=== PATIENT | female | born 1995 | race Caucasian/White ===

== ENCOUNTER 2016-07-09 16:59 | Emergency (ER) ==
[2016-07-09 17:08] VITALS: BMI 65.7
--- NOTE | 2016-07-09 17:52 | ED.PDOC ---
General <RYAN ENCISO - Last Filed: 07/09/16 22:36> Stated Complaint: has seen md at office due to cough/low grade fever with dx of bronchitis--on round of antibiotics-but cont to have bilat ribcage pain with coughing and some upper chest pain at times--no relief with inhaler[nd] Time Seen by Physician: 17:51 Mode of Arrival: Walk-In Information Source: Patient, Family Exam Limitations: No limitations Nursing and Triage Documentation Reviewed and Agree: No <ALVA ALVARADO JR - Last Filed: 07/10/16 09:43> ED Provider: Dr. ALVA ALVARADO JR ([facility]) (ALVA ALVARADO JR) Chief Complaint: Chest Wall Injury/Pain Primary Care Provider: [facility] ROBLES [facility] (ALVA ALVARADO JR) Review of Systems - Review Of Systems Constitutional: Reports: Malaise Respiratory: Reports: Cough Cardiac: Reports: Chest pain GI: Reports: No symptoms : Reports: No symptoms Musculoskeletal: Reports: No symptoms Skin: Reports: No symptoms Neurological: Reports: No symptoms Endocrine: Reports: No symptoms Hematologic/Lymphatic: Reports: No symptoms All Other Systems: Other <ALVA ALVARADO JR - Last Filed: 07/10/16 09:43> Past Medical History - Past Medical History Previously Healthy: Yes Endocrine: Reports: None Cardiovascular: Reports: None Respiratory: Reports: Asthma Hematological: Reports: None Gastrointestinal: Reports: None Genitourinary: Reports: None Neuro/Psych: Reports: None Musculoskeletal: Reports: None Cancer: Reports: None Last Menstrual Period: irreg--unknown - Surgical History General Surgical History: Reports: None - Family History Family History: Reports: None - Social History Smoking Status: Current every day smoker, Heavy tobacco smoker Hx Substance Use: No Alcohol Screening: None <ALVA ALVARADO JR - Last Filed: 07/10/16 09:43> Physical Exam - Physical Exam Appearance: Well-appearing, Obese Pain Distress: Moderate Eyes: CHARLY, EOMI, Conjunctiva clear ENT: Ears normal, Nose normal, Oropharynx normal Neck: Supple Respiratory: Airway patent, Breath sounds clear, Breath sounds equal, Breath sounds diminished, Respirations nonlabored Cardiovascular: RRR, Pulses normal, No rub, No murmur GI/: Soft, Nontender, No masses, Bowel sounds normal, No Organomegaly Musculoskeletal: Normal strength, ROM intact, No edema, No calf tenderness ( tender left costal margin about 8th rib and right sternal border possibly costochondral tenderness) Skin: Warm, Dry, Normal color Neurological: Sensation intact, Motor intact, Reflexes intact, Cranial nerves intact, Alert, Oriented Psychiatric: Affect appropriate, Mood appropriate <ALVA ALVARADO JR - Last Filed: 07/10/16 09:43> Interpretation - Radiology Interpretation Radiology Results: Positive Exam Interpreted: CT Scan <RYAN ENCISO - Last Filed: 07/09/16 22:36> - Radiology Interpretation Radiology Interpretation By: Radiologist Radiology Results: Negative Exam Interpreted: CT Scan (CHEST -INCIDENTAL [id number] CYSTIC STRUCTURE-CT ABD AND PELVIS RECOMMENDED) <ALVA ALVARADO JR - Last Filed: 07/10/16 09:43> Physician Notification - Case Discussed Physician Notified: dr calvillo at 9pm--stated to send to [facility] Physician Notified: dr hernandez accepted for dr mike medina--[facility] Time of Notification: 21:44 <RYAN ENCISO - Last Filed: 07/09/16 22:36> - Case Discussed Endorsed To/Discussed With: DR BLAIR Time of Discussion: 19:00 <ALVA ALVARADO JR - Last Filed: 07/10/16 09:43> Critical Care Note - Critical Care Note Total Time (mins): 0 <ALVA ALVARADO JR - Last Filed: 07/10/16 09:43> Course - Course Hematology/Chemistry: 07/09/16 19:34 07/09/16 19:34 <RYAN ENCISO - Last Filed: 07/09/16 22:36> - Course Hematology/Chemistry: 07/09/16 19:34 07/09/16 19:34 <ALVA ALVARADO JR - Last Filed: 07/10/16 09:43> - Course Orders, Labs, Meds: Lab Review 07/09/16 07/09/16 17:15 19:34 WBC 14.19 H RBC 4.84 Hgb 13.0 Hct 40.1 MCV 82.9 MCH 26.9 L MCHC 32.4 RDW Coeff of Jennifer 14.3 Plt Count 353 Immature Gran % (Auto) 0.6 Neut % (Auto) 56.6 Lymph % (Auto) 30.8 [place] % (Auto) 7.0 Eos % (Auto) 4.4 Baso % (Auto) 0.6 Immature Gran # (Auto) 0.1 Neut # 8.0 H Lymph # 4.4 H [place] # 1.0 Eos # 0.6 Baso # 0.1 D-Dimer 0.61 Sodium 140 Potassium 3.7 Chloride 104 Carbon Dioxide 28 Anion Gap 11.7 BUN 11 Creatinine 0.74 Estimated GFR (MDRD) 98.00 BUN/Creatinine Ratio 14.86 Glucose 79 Calcium 9.2 Total Bilirubin 0.26 AST 19 ALT 18 Alkaline Phosphatase 83 Total Protein 7.7 Albumin 3.4 Globulin 4.3 Albumin/Globulin Ratio 0.79 Urine Test Negative Orders Category Date Time Status NPO REMINDER: IMAGING ONCE CARE 07/09/16 18:57 Completed TRANSFER TO OUTSIDE FACILITY .TO OTHER OUTSIDE FACILITY CARE 07/09/16 21:45 Active (SEE ORDER DETAILS) WRITE TRANSFER/SBAR NOTE ONCE CARE 07/09/16 21:45 Active DISCHARGE ASSESSMENT ONCE DISCHARGE 07/09/16 21:45 Active WRITE DISCHARGE NOTE ONCE DISCHARGE 07/09/16 21:45 Active CBC W/ AUTO DIFF Stat LAB 07/09/16 19:34 Completed CMP [COMPREHENSIVE METABOLIC PANEL] Stat LAB 07/09/16 19:34 Completed D-DIMER Stat LAB 07/09/16 19:34 Completed TEST URINE [URINE ] Stat LAB 07/09/16 17:[address] ABDOMEN/PELVIS W CONTRAST Stat RADS 07/09/16 18:[address] CHEST W/O CONTRAST Stat RADS 07/09/16 18:02 Completed (RYAN ENCISO) Vital Signs: Temp Pulse Resp BP Pulse Ox 07/10/16 00:30 98.5 F 96 H 20 153/79 H 97 07/09/16 21:45 98.8 F 88 20 161/85 H 96 07/09/16 16:59 99.2 F 100 H 20 157/95 H 95 (RYAN ENCISO) (ALVA ALVARADO JR) Departure - Departure Time of Disposition: 21:44 Pt referred to PMD for follow-up: No Transfer Form Completed: Yes Disposition Discussed With: Patient, Family <RYAN ENCISO - Last Filed: 07/09/16 22:36> - Departure Pt referred to PMD for follow-up: Yes <ALVA ALVARADO SOFIYA JR - Last Filed: 07/10/16 09:43> - Departure Disposition: TSF SHORT-TRM HOSP Discharge Problem: Chest wall pain, Bronchitis 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 Instructions: Acute Bronchitis (ED), Ovarian Cyst (ED) Condition: Good Additional Instructions: cough medication for two to four weeks recheck if fever over 101.0 of if breathing is worse TRANFERRED TO [facility]) FOR OVARIAN CYST(MASSIVE ) Prescriptions: Benzonatate [Tessalon Perles] 200 mg PO TID PRN #20 capsule PRN Reason: Cough Guaifenesin/Codeine Phosphate [Robitussin AC Syrup] 10 ml PO Q6H PRN #240 ml PRN Reason: Cough Allergies/Adverse Reactions: Allergies Sulfa (Sulfonamide Antibiotics) Allergy (Mild, Verified 07/09/16 17:08) Itching methylphenidate [From Ritalin] Adverse Reaction (Verified 07/09/16 17:08) perphenazine [From Trilafon] Adverse Reaction (Verified 07/09/16 17:08) quetiapine [From Seroquel] Adverse Reaction (Verified 07/09/16 17:08) Home Medications: Ambulatory Orders Bupropion HCl [Wellbutrin Sr] 150 mg PO DAILY 12/06/15 [place] Carbonate 300 mg PO QID 12/06/15 Diphenhydramine HCl [Benadryl Allergy] 25 mg PO BEDTIME PRN 12/23/15 Terazosin HCl 10 mg PO DAILY 12/27/15 Albuterol Sulfate [Proair Hfa] 2 puff IH Q6H 07/09/16 Benzonatate [Tessalon Perles] 200 mg PO TID PRN #20 capsule 07/09/16 Guaifenesin/Codeine Phosphate [Robitussin AC Syrup] 10 ml PO Q6H PRN #240 ml Montelukast Sodium [Singulair] 10 mg PO BEDTIME 07/09/16
--- NOTE | 2016-07-09 18:48 | CT ---
Exam: There is a CT scan of the thorax without contrast. Date: 07/09/2016. Comparison: None. HISTORY: Cough with poor breath sounds. TECHNIQUE: Helical scan of the thorax was performed without contrast. FINDINGS: The thoracic inlet and axillary regions are normal. No suspicious mediastinal adenopathy is seen. The caliber of the thoracic aorta cardiac chambers are normal. The spleen and liver have a uniform attenuation. There is a cystic structure that is seen on the last few images that likely arises of the lower abdomen or pelvis and measures at least 29.6 x 19.8 cm but is incompletely visu alized. The thoracic spine and ribs are within normal limits. Evaluation at lung window settings does not demonstrate any suspicious pulmonary nodules, pleural fl uid or consolidation. Tracheobronchial tree is patent. Impression: No acute intrathoracic findings. However there is a cystic structure that arises out o f the lower abdomen or pelvis that is incompletely characterized. It measures at least 29.6 x 19.[address] scan of the abdomen pelvis with contrast would be recommended.
[2016-07-09 19:16] LABS: URINE PREGNANCY INTERNAL QC INTERNAL QC VALID
[2016-07-09 19:56] LABS: ALBUMIN 3.4 g/dL (3.4-5.0); ALBUMIN/GLOBULIN RATIO 0.79; ANION GAP 11.7; BILIRUBIN,TOTAL 0.26 mg/dL (0.00-1.20); BUN/CREATININE RATIO 14.86; CALCIUM 9.2 mg/dL (8.2-10.2); CREATININE 0.74 mg/dL (0.60-1.30); POTASSIUM 3.7 mmol/L (3.5-5.10); TOTAL PROTEIN 7.7 g/dL (6.4-8.2)
[2016-07-09 20:40] LABS: BASOPHILS # (AUTO) 0.1 K/uL (0-0.2); BASOPHILS % (AUTO) 0.6 % (0.0-3.0); EOSINOPHILS # (AUTO) 0.6 K/ul (0.0-0.7); EOSINOPHILS % (AUTO) 4.4 % (0.0-7.0); HEMATOCRIT 40.1 % (37.0-47.0); IMMATURE GRANULOCYTE % (AUTO) 0.6 % (0.0-5.0); LYMPHOCYTES # (AUTO) 4.4 K/uL (0.60-3.4); LYMPHOCYTES % (AUTO) 30.8 (10.0-50.0); MEAN CORPUSCULAR HEMOGLOBIN 26.9 pg (27.0-31.0); MEAN CORPUSCULAR HGB CONC 32.4 (31.8-35.4); MEAN CORPUSCULAR VOLUME 82.9 fl (81.0-99.0); NEUTROPHILS % (AUTO) 56.6; PLATELET COUNT 353 10^3/uL (140-440); RED BLOOD COUNT 4.84 10^6/ul (4.20-5.40); WHITE BLOOD COUNT 14.19 K/ul (4.6-10.2)
--- NOTE | 2016-07-09 20:42 | CT ---
Exam: CT of the abdomen and pelvis with contrast History: Abdominal abnormality seen on chest CT Technique: [address] of the abdomen pelvis following intravenous contrast FINDINGS: The lung bases are clear. No significant liver abnormality. The adrenals, pancreas and sp anjum are unremarkable. The stomach and hiatus are unremarkable. The gallbladder appears normal. Kidneys and proximal collecting system are unremarkable. Massive cyst of the abdominal midline measures 30 x 33 x 20 cm. The site of origin favored the left adnexa. The appendix is normal. Bowel loops demonstrate normal caliber. No inflamatory change seen in the mesentery or retroperitoneum. Vascular structures appear normal. No pathologic lymph node enlargement or abundance. Massive cyst likely emanating from the left adnexa. The cyst is entirely featureless. Remainder of the pelvic genitourinary structures appear normal. Pelvic bowel loops are unremarkable. No inflamm atory change in the pelvic fat. No acute abnormality of the abdominal or pelvic skeleton. Impression: 1. Massive abdominal cyst (30 x 33 x 20 cm). The cyst is entirely featureless. Surgical referral r ecommended. 2. No abnormalities of the abdomen or pelvis otherwise.
[2016-07-10 00:31] VITALS: BP 153/79; TEMP 98.5
== END 2016-07-10 01:10 | disposition short-term general hospital (02) ==
LOC: ED 16:59
DX: R07.89 Other chest pain (principal); J20.9 Acute bronchitis, unspecified; D27.1 Benign neoplasm of left ovary; Z79.899 Other long term (current) drug therapy; F17.210 Nicotine dependence, cigarettes, uncomplicated
CPT/HCPCS: 36415; 80053; 81025; 85025; 85379; 99285

== ENCOUNTER 2016-07-10 01:12 | Outpatient (CLI) | END 2016-07-10 01:13 | disposition home or self-care (01) | LOC: AMBL 01:12 | PROVIDERS: ATTEND Family Medicine | DX: R19.00 Intra-abdominal and pelvic swelling, mass and lump, unspecified site (principal) ==

== ENCOUNTER 2016-07-12 19:21 | Emergency (ER) ==
[2016-07-12 19:36] VITALS: BP 143/92; TEMP 99.5; BMI 65.2
[2016-07-12] MEDS ORDERED: ZOFRAN 4 MG/2 ML IM STA (19:50)
[2016-07-12] MEDS ORDERED: MORPHINE 4 MG/ML SYRINGE IM STA (19:50)
[2016-07-12 19:53] LABS: URINE PREGNANCY INTERNAL QC INTERNAL QC VALID
[2016-07-12 20:09] LABS: BASOPHILS # (AUTO) 0.1 K/uL (0-0.2); BASOPHILS % (AUTO) 0.8 % (0.0-3.0); EOSINOPHILS # (AUTO) 0.7 K/ul (0.0-0.7); EOSINOPHILS % (AUTO) 5.5 % (0.0-7.0); HEMATOCRIT 38.8 % (37.0-47.0); HEMOGLOBIN 12.7 g/dl (12.0-16.0); IMMATURE GRANULOCYTE % (AUTO) 0.2 % (0.0-5.0); LYMPHOCYTES # (AUTO) 3.6 K/uL (0.60-3.4); LYMPHOCYTES % (AUTO) 28.2 (10.0-50.0); MEAN CORPUSCULAR HEMOGLOBIN 26.8 pg (27.0-31.0); MEAN CORPUSCULAR HGB CONC 32.7 (31.8-35.4); MEAN CORPUSCULAR VOLUME 81.9 fl (81.0-99.0); MONOCYTES # (AUTO) 0.9 K/uL (0.4-2.0); MONOCYTES % (AUTO) 7.4 (0-10); NEUTROPHILS # (AUTO) 7.3 K/ul (2.0-6.9); NEUTROPHILS % (AUTO) 57.9; PLATELET COUNT 365 10^3/uL (140-440); RED BLOOD COUNT 4.74 10^6/ul (4.20-5.40); WHITE BLOOD COUNT 12.59 K/ul (4.6-10.2)
[2016-07-12 20:16] LABS: BILIRUBIN,URINE Negative (NEGATIVE); KETONES,URINE Negative (NEGATIVE); LEUKOCYTE ESTERASE ,URINE Negative (NEGATIVE); NITRITE,URINE Negative (NEGATIVE); PH,URINE 5.5 (5-9); PROTEIN,URINE Negative (NEGATIVE); URINE, BLOOD 2+ (NEGATIVE)
[2016-07-12 20:17] LABS: ADD URINE MICROSCOPIC YES
[2016-07-12 20:25] LABS: BACTERIA,URINE TRACE (NOT PRESENT)
[2016-07-12 20:27] LABS: FLU INTERNAL QC INTERNAL QC VALID; RAPID FLU A NEGATIVE (NEGATIVE); RAPID FLU B NEGATIVE (NEGATIVE)
[2016-07-12 20:31] LABS: ALBUMIN 3.5 g/dL (3.4-5.0); ALBUMIN/GLOBULIN RATIO 0.9; ANION GAP 13.8; BILIRUBIN,TOTAL 0.2 mg/dL (0.00-1.20); BUN/CREATININE RATIO 13.15; CALCIUM 9.1 mg/dL (8.2-10.2); CREATININE 0.76 mg/dL (0.60-1.30); POTASSIUM 3.8 mmol/L (3.5-5.10); TOTAL PROTEIN 7.4 g/dL (6.4-8.2)
--- NOTE | 2016-07-12 20:42 | CT ---
EXAM: CT chest without intravenous contrast 07/12/2016. Sagittal and coronal reformatted images ob tained HISTORY: Fever COMPARISON: 07/09/2016 FINDINGS: The heart size appears within normal limits. There is no pericardial effusion. There is no pulmonary consolidation, effusion or pneumothorax. The lungs appear normally aerated. No acute osseous abnormality. IMPRESSION: No acute cardiopulmonary process.
[2016-07-12 20:48] LABS: ERYTHROCYTE SEDIMENTATION RATE 46 mm/hr (0-20); ESR INTERNAL QC INTERNAL QC VALID
--- NOTE | 2016-07-12 20:48 | CT ---
EXAM: CT scan abdomen pelvis without contrast HISTORY: Pelvic mass or pain COMPARISON: CT scan abdomen pelvis 07/09/2016 FINDINGS: Contiguous axial images obtained through the abdomen pelvis without contrast utilizing 3- mm collimation. Sagittal and coronal reconstructions were imaged and reviewed.. The visualized roxane g bases are clear. Gallbladder is fluid filled without cholelithiasis. The liver pancreas spleen a nd adrenal glands have normal unenhanced CT appearance. The kidneys are morphologically normal. Th e abdominal aorta is normal in course and caliber. There is a normal appendix.. There is no eviden ce of free fluid.. Redemonstrated is a large cystic pelvic mass measuring 30 x 20 x 28 cm.. Bone w indows are unremarkable. IMPRESSION: Stable large cystic pelvic mass as described. No acute findings.
--- NOTE | 2016-07-12 21:01 | ED.PDOC ---
General ED Provider: Dr. RYAN BLAIR-ER Chief Complaint: Abdominal Pain Stated Complaint: kay have a cyst in my belly--im supposed to have surgery next week in [facility]--i dont have any pain meds Time Seen by Physician: 19:25 Mode of Arrival: Walk-In Information Source: Patient, Family Exam Limitations: No limitations Primary Care Provider: CAROLA ROBLES Nursing and Triage Documentation Reviewed and Agree: Yes GI Complaint Exam - Abdominal Pain Complaint/Exam Onset: Gradual Duration: several days Symptoms Are: Still present Timing: Intermittent Initial Severity: Mild Current Severity: Moderate Location of Pain: LUQ Radiates To: Reports: Back Character: Reports: Dull, Aching Aggravating: Reports: None Alleviating: Reports: Position, Spontaneous resolution Associated Signs and Symptoms: Denies: Diaphoresis, Fever, Cough, Chest pain, Dizziness, Back pain, Constipation, Blood in stool, Dysuria, Urinary frequency, Decreased urine output, Decreased appetite, Vaginal bleeding, Vaginal discharge , Nausea, Vomiting, Diarrhea, Sore throat, Decreased activity Related History: Reports: Similar episode (was here 3 days ago) 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 Surgical Obstruction Risk Factors: Reports: None Related Surgical History: Reports: None Patient Rh Status: Unknown Abdominal Findings: Present: None Differential Diagnoses: Ovarian Cyst Review of Systems - Review Of Systems Constitutional: Reports: No symptoms Eyes: Reports: No symptoms Ears, Nose, Mouth, Throat: Reports: No symptoms Respiratory: Reports: No symptoms Cardiac: Reports: No symptoms GI: Reports: Abdominal pain : Reports: No symptoms Musculoskeletal: Reports: No symptoms Skin: Reports: No symptoms Neurological: Reports: No symptoms Endocrine: Reports: No symptoms Hematologic/Lymphatic: Reports: No symptoms All Other Systems: Reviewed and Negative Past Medical History - Past Medical History Previously Healthy: Yes Endocrine: Reports: None Cardiovascular: Reports: None Respiratory: Reports: Asthma Hematological: Reports: None Gastrointestinal: Reports: None Genitourinary: Reports: None Neuro/Psych: Reports: None Musculoskeletal: Reports: None Cancer: Reports: None Last Menstrual Period: 3 months ago - Surgical History General Surgical History: Reports: None - Family History Family History: Reports: None - Social History Smoking Status: Former smoker Hx Substance Use: No Alcohol Screening: None Lives: With family - Immunizations Tetanus Shot up to Date: Yes Physical Exam - Physical Exam Appearance: Well-appearing Pain Distress: Mild Eyes: CHARLY, EOMI, Conjunctiva clear ENT: Ears normal, Nose normal, Oropharynx normal Neck: Supple Respiratory: Airway patent Cardiovascular: RRR GI/: Soft, Bowel sounds normal, Tender, Mass Musculoskeletal: Normal strength, ROM intact, No edema, No calf tenderness Skin: Warm, Dry, Normal color Neurological: Sensation intact, Motor intact, Reflexes intact, Cranial nerves intact, Alert, Oriented Psychiatric: Affect appropriate, Mood appropriate Interpretation - Radiology Interpretation Radiology Interpretation By: Radiologist Radiology Results: Positive Exam Interpreted: CT Scan ("adnexal cyst--no change in size") Re-Evaluation - Re-Evaluation Time of Re-Evaluation: 21:02 Status: Improved Vital Signs Stable: Yes Pain Level: 0 Appearance: NAD Lungs: Clear Skin: Warm and Dry Neuro: Alert and Oriented X3 CV: RRR Critical Care Note - Critical Care Note Total Time (mins): 0 Course - Course Hematology/Chemistry: 07/12/16 20:05 07/12/16 20:05 Orders, Labs, Meds: Lab Review 07/12/16 07/12/16 07/12/16 19:45 19:57 20:05 WBC 12.59 H RBC 4.74 Hgb 12.7 Hct 38.8 MCV 81.9 MCH 26.8 L MCHC 32.7 RDW Coeff of Jennifer 13.8 Plt Count 365 Immature Gran % (Auto) 0.2 Neut % (Auto) 57.9 Lymph % (Auto) 28.2 [place] % (Auto) 7.4 Eos % (Auto) 5.5 Baso % (Auto) 0.8 Immature Gran # (Auto) 0.0 Neut # 7.3 H Lymph # 3.6 H [place] # 0.9 Eos # 0.7 Baso # 0.1 ESR 46 H D-Dimer 0.59 Sodium 138 Potassium 3.8 Chloride 105 Carbon Dioxide 23 Anion Gap 13.8 BUN 10 Creatinine 0.76 Estimated GFR (MDRD) 95.00 BUN/Creatinine Ratio 13.15 Glucose 87 Calcium 9.1 Total Bilirubin 0.20 AST 19 ALT 16 Alkaline Phosphatase 88 Total Protein 7.4 Albumin 3.5 Globulin 3.9 Albumin/Globulin Ratio 0.90 Urine Color Dark Urine Clarity Cloudy Urine pH 5.5 Ur Specific Hodge 1.025 Urine Protein Negative Urine Glucose (UA) Negative Urine Ketones Negative Urine Blood 2+ Urine Nitrite Negative Urine Bilirubin Negative Urine Urobilinogen 0.2 Ur Leukocyte Esterase Negative Urine Microscopic RBC 5-10 Urine Microscopic WBC 2-5 Ur Squamous Epith Cells 20-30 Urine Bacteria Trace Urine Test Negative Influenza A (Rapid) Negative Influenza B (Rapid) Negative Orders Category Date Time Status BLOOD CULTURE Stat LAB 07/12/16 20:05 Received CBC W/ AUTO DIFF Stat LAB 07/12/16 20:05 Completed COMPREHENSIVE METABOLIC PANEL Stat LAB 07/12/16 20:05 Completed CRP [C-REACTIVE PROTEIN] Stat LAB 07/12/16 20:05 Received D-DIMER Stat LAB 07/12/16 20:05 Completed ESR Stat LAB 07/12/16 20:05 Completed MOLECULAR GROUP A STREP Stat LAB 07/12/16 19:57 Results RAPID FLU A/B Stat LAB 07/12/16 19:57 Completed STREP SCREEN Stat LAB 07/12/16 19:57 Results URINALYSIS C & S IF INDICATED Stat LAB 07/12/16 19:45 Completed URINE Stat LAB 07/12/16 19:45 Completed Morphine Sulfate [Morphine 4 mg/ml Syringe] MEDS 07/12/16 19:50 Discontinued 4 mg IM ONCE STA Ondansetron HCl/Pf [Zofran 4 mg/2 ml] MEDS 07/12/16 19:50 Discontinued 4 mg IM ONCE STA CT ABDOMEN/PELVIS WO CONTRAST Stat RADS 07/12/16 19:[address] CHEST W/O CONTRAST Stat RADS 07/12/16 19:50 Completed Medications Discontinued Medications Generic Name Dose Route Start Last Admin Trade Name Freq PRN Reason Stop Dose Admin Morphine Sulfate 4 mg 07/12/16 19:50 Morphine 4 Mg/Ml Syringe IM 07/12/16 19:51 ONCE STA Ondansetron HCl 4 mg 07/12/16 19:50 Zofran 4 Mg/2 Ml IM 07/12/16 19:51 ONCE STA Vital Signs: Temp Pulse Resp BP Pulse Ox 07/12/16 19:22 99.5 F 89 20 143/92 H 96 Departure - Departure Time of Disposition: 21:02 Disposition: HOME SELF-CARE Discharge Problem: Adnexal cyst Instructions: Ovarian Cyst (ED) Condition: Good Pt referred to PMD for follow-up: Yes Additional Instructions: norco 7.5mg q 4hrs prn pain #12---keep appt with [facility] surgeon Allergies/Adverse Reactions: Allergies Sulfa (Sulfonamide Antibiotics) Allergy (Mild, Verified 07/12/16 19:36) Itching methylphenidate [From Ritalin] Adverse Reaction (Verified 07/12/16 19:36) perphenazine [From Trilafon] Adverse Reaction (Verified 07/12/16 19:36) quetiapine [From Seroquel] Adverse Reaction (Verified 07/12/16 19:36) Home Medications: Ambulatory Orders Bupropion HCl [Wellbutrin Sr] 150 mg PO DAILY 12/06/15 [place] Carbonate 300 mg PO QID 12/06/15 Diphenhydramine HCl [Benadryl Allergy] 25 mg PO BEDTIME PRN 12/23/15 Terazosin HCl 10 mg PO DAILY 12/27/15 Albuterol Sulfate [Proair Hfa] 2 puff IH Q6H 07/09/16 Guaifenesin/Codeine Phosphate [Robitussin AC Syrup] 10 ml PO Q6H PRN #240 ml Montelukast Sodium [Singulair] 10 mg PO BEDTIME 07/09/16 Disposition Discussed With: Patient, Family
== END 2016-07-12 21:15 | disposition home or self-care (01) ==
LOC: ED 19:21
DX: N83.209 Unspecified ovarian cyst, unspecified side (principal); R10.12 Left upper quadrant pain; Z79.899 Other long term (current) drug therapy
CPT/HCPCS: 36415; 80053; 81001; 81025; 85025; 85379; 85651; 86140; 87040; 87651; 87804; 87880; 96372; 99283

== ENCOUNTER 2016-07-14 04:33 | Emergency (ER) ==
[2016-07-14 04:34] VITALS: BMI 65.2
[2016-07-14 04:48] VITALS: BP 148/92; TEMP 97.4
[2016-07-14] MEDS ORDERED: SODIUM CHLORIDE 1,000 ML IV STA (04:56)
[2016-07-14 05:10] LABS: BASOPHILS # (AUTO) 0.1 K/uL (0-0.2); BASOPHILS % (AUTO) 0.7 % (0.0-3.0); EOSINOPHILS # (AUTO) 0.6 K/ul (0.0-0.7); EOSINOPHILS % (AUTO) 5.3 % (0.0-7.0); HEMATOCRIT 38.9 % (37.0-47.0); HEMOGLOBIN 12.7 g/dl (12.0-16.0); IMMATURE GRANULOCYTE % (AUTO) 0.3 % (0.0-5.0); LYMPHOCYTES # (AUTO) 3.1 K/uL (0.60-3.4); LYMPHOCYTES % (AUTO) 27.4 (10.0-50.0); MEAN CORPUSCULAR HGB CONC 32.6 (31.8-35.4); MEAN CORPUSCULAR VOLUME 82.6 fl (81.0-99.0); MONOCYTES # (AUTO) 0.7 K/uL (0.4-2.0); MONOCYTES % (AUTO) 6.2 (0-10); NEUTROPHILS # (AUTO) 6.7 K/ul (2.0-6.9); NEUTROPHILS % (AUTO) 60.1; PLATELET COUNT 316 10^3/uL (140-440); RED BLOOD COUNT 4.71 10^6/ul (4.20-5.40); WHITE BLOOD COUNT 11.12 K/ul (4.6-10.2)
--- NOTE | 2016-07-14 05:15 | ED.PDOC ---
General ED Provider: Dr. RYAN BLAIR-ER Chief Complaint: Abdominal Pain Stated Complaint: this cyst is hurting now--i am having vaginal bleeding-the norco is not helping my pain-- i want help please Time Seen by Physician: 04:45 Mode of Arrival: Ambulance Information Source: Patient Exam Limitations: No limitations Primary Care Provider: CAROLA ROBLES Nursing and Triage Documentation Reviewed and Agree: Yes GI Complaint Exam - Abdominal Pain Complaint/Exam Onset: Gradual Duration: several days Symptoms Are: Still present Timing: Constant Initial Severity: Mild Current Severity: Moderate Location of Pain: LUQ Character: Reports: Dull, Aching Aggravating: Reports: None Alleviating: Reports: None Associated Signs and Symptoms: Reports: Vaginal bleeding. 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: Ovarian cyst AAA Risk Factors: Reports: None Cardiac Risk Factors: Reports: None Ovarian Torsion Risk Factors: Reports: Reproductive age Surgical Obstruction Risk Factors: Reports: Colicky abdominal pain Patient Rh Status: Unknown Abdominal Findings: Present: None Differential Diagnoses: Ovarian Cyst Review of Systems - Review Of Systems Constitutional: Reports: No symptoms Eyes: Reports: No symptoms Ears, Nose, Mouth, Throat: Reports: No symptoms Respiratory: Reports: No symptoms Cardiac: Reports: No symptoms GI: Reports: Abdominal pain : Reports: No symptoms Musculoskeletal: Reports: No symptoms Skin: Reports: No symptoms Neurological: Reports: No symptoms Endocrine: Reports: No symptoms Hematologic/Lymphatic: Reports: No symptoms All Other Systems: Reviewed and Negative Past Medical History - Past Medical History Previously Healthy: Yes Endocrine: Reports: None Cardiovascular: Reports: None Respiratory: Reports: Asthma Hematological: Reports: None Gastrointestinal: Reports: None Genitourinary: Reports: None Neuro/Psych: Reports: None Musculoskeletal: Reports: None Cancer: Reports: None Last Menstrual Period: now - Surgical History General Surgical History: Reports: None - Family History Family History: Reports: None - Social History Smoking Status: Former smoker Hx Substance Use: No Alcohol Screening: None Lives: With family - Immunizations Tetanus Shot up to Date: Yes Physical Exam - Physical Exam Appearance: Well-appearing, No pain distress, Well-nourished Pain Distress: Mild Eyes: CHARLY, EOMI, Conjunctiva clear ENT: Ears normal, Nose normal, Oropharynx normal Neck: Supple Respiratory: Airway patent, Breath sounds clear, Breath sounds equal, Respirations nonlabored Cardiovascular: RRR, Pulses normal, No rub, No murmur GI/: Soft, No masses, Bowel sounds normal, No Organomegaly, Tender Musculoskeletal: Normal strength, ROM intact, No edema, No calf tenderness Skin: Warm, Dry, Normal color Neurological: Sensation intact, Motor intact, Reflexes intact, Cranial nerves intact, Alert, Oriented Psychiatric: Affect appropriate, Mood appropriate Physician Notification - Case Discussed Physician Notified: dr hernandez--[facility]--agreed to accept the patient Time of Notification: 05:16 Critical Care Note - Critical Care Note Total Time (mins): 0 Course - Course Hematology/Chemistry: 07/14/16 05:08 07/14/16 05:08 Orders, Labs, Meds: Lab Review 07/14/16 05:08 WBC 11.12 H RBC 4.71 Hgb 12.7 Hct 38.9 MCV 82.6 MCH 27.0 MCHC 32.6 RDW Coeff of Jennifer 13.8 Plt Count 316 Immature Gran % (Auto) 0.3 Neut % (Auto) 60.1 Lymph % (Auto) 27.4 [place] % (Auto) 6.2 Eos % (Auto) 5.3 Baso % (Auto) 0.7 Immature Gran # (Auto) 0.0 Neut # 6.7 Lymph # 3.1 [place] # 0.7 Eos # 0.6 Baso # 0.1 Sodium 141 Potassium 3.8 Chloride 107 Carbon Dioxide 26 Anion Gap 11.8 BUN 13 Creatinine 0.84 Estimated GFR (MDRD) 85.00 BUN/Creatinine Ratio 15.47 Glucose 97 Calcium 9.2 Total Bilirubin 0.26 AST 18 ALT 17 Alkaline Phosphatase 83 Total Protein 7.2 Albumin 3.4 Globulin 3.8 Albumin/Globulin Ratio 0.89 Serum , Qual Negative Orders Category Date Time Status IV [ED IV/MEDIPORT/POWERPORT] .ONCE EMERGENCY 07/14/16 04:56 Active CBC W/ AUTO DIFF Stat LAB 07/14/16 05:08 Completed COMPREHENSIVE METABOLIC PANEL Stat LAB 07/14/16 05:08 Completed SERUM Stat LAB 07/14/16 05:08 Completed 0.9 % Sodium Chloride [Saline Flush] MEDS 07/14/16 04:56 Ordered 1 syr IVF PRN PRN Morphine Sulfate [Morphine 2 mg/ml Syringe] MEDS 07/14/16 05:27 Discontinued 2 mg IVP ONCE STA Ondansetron HCl/Pf [Zofran 4 mg/2 ml] MEDS 07/14/16 05:27 Discontinued 4 mg IVP ONCE STA Sodium Chloride 0.9% [Sodium Chloride] 1,000 ml MEDS 07/14/16 04:56 Active IV 100 mls/hr Medications Generic Name Dose Route Start Last Admin Trade Name Freq PRN Reason Stop Dose Admin Sodium Chloride 1,000 mls @ 100 mls/hr 07/14/16 04:56 07/14/16 05:34 Sodium Chloride IV 07/14/16 14:55 100 mls/hr .Q10H STA Administration Sodium Chloride 1 syr 07/14/16 04:56 Saline Flush IVF PRN PRN To flush IV Discontinued Medications Generic Name Dose Route Start Last Admin Trade Name Freq PRN Reason Stop Dose Admin Morphine Sulfate 2 mg 07/14/16 05:27 07/14/16 05:39 Morphine 2 Mg/Ml Syringe IVP 07/14/16 05:28 2 mg ONCE STA Administration Ondansetron HCl 4 mg 07/14/16 05:27 07/14/16 05:39 Zofran 4 Mg/2 Ml IVP 07/14/16 05:28 4 mg ONCE STA Administration i spoke to dr hernandez--she inquired about whether or not she had an acute abdomen- -on my exam she does not--no rebound--good bs--we did not repeat ct scan today-- we do not have u/s available--dr hernandez asked me to tell the patient she might not be having surgery today and to relate that to the patient in a way she would not misunderstand..the patient understands but in light of the fact she was having pain unrelieved with norco she was agreeable to transfer Vital Signs: Temp Pulse Resp BP Pulse Ox 07/14/16 04:35 97.4 F L 84 20 148/92 H 99 Departure - Departure Time of Disposition: 05:25 Disposition: TSF SHORT-TRM HOSP Discharge Problem: Abdominal pain Ovarian cyst Qualifiers: Laterality: left Qualifier Code: (N83.202) Unspecified ovarian cyst, left side Instructions: Ovarian Cyst (ED) Condition: Good Pt referred to PMD for follow-up: Yes Allergies/Adverse Reactions: Allergies Sulfa (Sulfonamide Antibiotics) Allergy (Mild, Verified 07/14/16 04:48) Itching methylphenidate [From Ritalin] Adverse Reaction (Verified 07/14/16 04:48) perphenazine [From Trilafon] Adverse Reaction (Verified 07/14/16 04:48) quetiapine [From Seroquel] Adverse Reaction (Verified 07/14/16 04:48) Home Medications: Ambulatory Orders Bupropion HCl [Wellbutrin Sr] 150 mg PO DAILY 12/06/15 [place] Carbonate 300 mg PO QID 12/06/15 Diphenhydramine HCl [Benadryl Allergy] 25 mg PO BEDTIME PRN 12/23/15 Terazosin HCl 10 mg PO DAILY 12/27/15 Albuterol Sulfate [Proair Hfa] 2 puff IH Q6H 07/09/16 Guaifenesin/Codeine Phosphate [Robitussin AC Syrup] 10 ml PO Q6H PRN #240 ml Montelukast Sodium [Singulair] 10 mg PO BEDTIME 07/09/16 Transfer Form Completed: Yes Disposition Discussed With: Patient, Family
[2016-07-14 05:20] LABS: SERUM PREGNANCY INTERNAL QC INTERNAL QC VALID
[2016-07-14 05:27] LABS: ALBUMIN 3.4 g/dL (3.4-5.0); ALBUMIN/GLOBULIN RATIO 0.89; ANION GAP 11.8; BILIRUBIN,TOTAL 0.26 mg/dL (0.00-1.20); BUN/CREATININE RATIO 15.47; CALCIUM 9.2 mg/dL (8.2-10.2); CREATININE 0.84 mg/dL (0.60-1.30); POTASSIUM 3.8 mmol/L (3.5-5.10); TOTAL PROTEIN 7.2 g/dL (6.4-8.2)
[2016-07-14] MEDS ORDERED: ZOFRAN 4 MG/2 ML IVP STA (05:27)
[2016-07-14] MEDS ORDERED: MORPHINE 2 MG/ML SYRINGE IVP STA (05:27)
[2016-07-14] MEDS ORDERED: BENADRYL IVP STA (06:28)
== END 2016-07-14 07:59 | disposition short-term general hospital (02) ==
LOC: ED 04:33
DX: N83.202 Unspecified ovarian cyst, left side (principal); Z79.899 Other long term (current) drug therapy
CPT/HCPCS: 36415; 80053; 84703; 85025; 96361; 96374; 96375; 99285

== ENCOUNTER 2016-07-14 07:57 | Outpatient (CLI) ==
[2016-07-14 04:34] VITALS: BMI 65.2
== END 2016-07-14 07:58 ==
LOC: AMBL 07:57
PROVIDERS: ATTEND Emergency Medicine
DX: K65.1 Peritoneal abscess (principal); E66.01 Morbid (severe) obesity due to excess calories

== ENCOUNTER 2016-09-28 15:05 | Emergency (ER) | payer OTHER ==
[2016-09-28 15:12] VITALS: BMI 61.2
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
[2016-09-28 16:00] LABS: BASOPHILS # (AUTO) 0.1 K/uL (0-0.2); BASOPHILS % (AUTO) 0.6 % (0.0-3.0); EOSINOPHILS # (AUTO) 0.4 K/ul (0.0-0.7); EOSINOPHILS % (AUTO) 3.3 % (0.0-7.0); HEMATOCRIT 36.6 % (37.0-47.0); HEMOGLOBIN 12.1 g/dl (12.0-16.0); IMMATURE GRANULOCYTE % (AUTO) 0.6 % (0.0-5.0); LYMPHOCYTES # (AUTO) 2.9 K/uL (0.60-3.4); LYMPHOCYTES % (AUTO) 26.5 (10.0-50.0); MEAN CORPUSCULAR HGB CONC 33.1 (31.8-35.4); MEAN CORPUSCULAR VOLUME 81.7 fl (81.0-99.0); MONOCYTES # (AUTO) 0.6 K/uL (0.4-2.0); MONOCYTES % (AUTO) 5.6 (0-10); NEUTROPHILS # (AUTO) 6.8 K/ul (2.0-6.9); NEUTROPHILS % (AUTO) 63.4; PLATELET COUNT 348 10^3/uL (140-440); RED BLOOD COUNT 4.48 10^6/ul (4.20-5.40); WHITE BLOOD COUNT 10.75 K/ul (4.6-10.2)
[2016-09-28 16:38] LABS: ACETAMINOPHEN 11 ug/ml (10-30); ALANINE AMINOTRANSFERASE 19 U/L (12-78); ALBUMIN 3.2 g/dL (3.4-5.0); ALBUMIN/GLOBULIN RATIO 0.89; ALKALINE PHOSPHATASE 70 U/L (42-98); AMYLASE 50 U/L (25-115); ANION GAP 12.5; ASPARTATE AMINO TRANSFERASE 19 U/L (15-37); BILIRUBIN,TOTAL 0.21 mg/dL (0.00-1.20); BLOOD UREA NITROGEN 9 mg/dL (7-18); BUN/CREATININE RATIO 11.39; CALCIUM 8.9 mg/dL (8.2-10.2); CARBON DIOXIDE 25 mmol/L (21-32); CHLORIDE 107 mmol/L (98-107); CREATININE 0.79 mg/dL (0.60-1.30); GLUCOSE 113 mg/dL (70-110); LIPASE 23 U/L (8-78); POTASSIUM 3.5 mmol/L (3.5-5.10); SALICYLATE < 5.0 mg/dL (2.8-20.0); SODIUM 141 mmol/L (136-145); TOTAL PROTEIN 6.8 g/dL (6.4-8.2)
[2016-09-28 17:08] LABS: BILIRUBIN,URINE 1+ (NEGATIVE); KETONES,URINE Trace (NEGATIVE); LEUKOCYTE ESTERASE ,URINE Negative (NEGATIVE); NITRITE,URINE Negative (NEGATIVE); PH,URINE 5.5 (5-9); PROTEIN,URINE 2+ (NEGATIVE); URINE, BLOOD 3+ (NEGATIVE)
[2016-09-28 17:09] LABS: URINE PREGNANCY INTERNAL QC INTERNAL QC VALID
[2016-09-28 17:11] LABS: ADD URINE MICROSCOPIC YES
[2016-09-28 17:14] LABS: COCAIN SCREEN,URINE NEGATIVE (NEGATIVE)
[2016-09-28 23:16] VITALS: BP 148/97; TEMP 99
== END 2016-09-29 00:15 ==
LOC: ED 15:05
DX: R45.851 Suicidal ideations (principal); N93.9 Abnormal uterine and vaginal bleeding, unspecified; R20.0 Anesthesia of skin; R47.81 Slurred speech; R53.83 Other fatigue; R10.9 Unspecified abdominal pain; R41.82 Altered mental status, unspecified; Z79.899 Other long term (current) drug therapy; Z98.890 Other specified postprocedural states
CPT/HCPCS: 36415; 80053; 80178; 80306; 80307; 81001; 81025; 82150; 83690; 84443; 85025; 93005; 93010; 99285

== ENCOUNTER 2016-10-23 15:27 | Outpatient (CLI) | END 2016-10-23 15:28 | disposition home or self-care (01) | LOC: CAR 15:27 | PROVIDERS: ATTEND Nurse Practitioner Family | DX: G47.33 Obstructive sleep apnea (adult) (pediatric) (principal) | CPT/HCPCS: 95810 ==

== ENCOUNTER 2017-01-21 15:55 | Outpatient (CLI) | END 2017-01-21 15:56 | disposition home or self-care (01) | LOC: CAR 15:55 | PROVIDERS: ATTEND Psychiatry & Neurology Sleep Medicine | DX: G47.33 Obstructive sleep apnea (adult) (pediatric) (principal) | CPT/HCPCS: 95811 ==

== ENCOUNTER 2017-01-31 14:25 | Emergency (ER) | payer OTHER ==
[2017-01-31 14:30] VITALS: TEMP 97.7; BMI 59.5
--- NOTE | 2017-01-31 14:54 | ED.PDOC ---
General ED Provider: Dr. WYATT SWAIN Chief Complaint: Chest Wall Injury/Pain Stated Complaint: Patient states she has been coughing for the past two days and then started developing chest pain on the left with mild shortness of breath. Time Seen by Physician: 14:51 Mode of Arrival: Walk-In Information Source: Patient Exam Limitations: No limitations Primary Care Provider: CAROLA ROBLES Nursing and Triage Documentation Reviewed and Agree: Yes Cardiovascular Complaint Exam - Chest Pain Complaint/Exam Onset: Sudden Duration: constant Symptoms Are: Still present Timing: Intermittent Length of Chest Pain Episodes: 2 days Initial Severity: Mild Current Severity: None Location: Reports: Left anterior Pain Radiates: Reports: None Character: Reports: Stabbing Aggravating: Reports: Deep breaths Alleviating: Reports: None Associated Signs and Symptoms: Reports: Cough, Short of air (very mild ). 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 Differential Diagnoses: Other (Pleuricy ) Quality Indicator For Non-Traumatic Chest Pain/Syncope: EKG Performed Review of Systems - Review Of Systems Constitutional: Reports: No symptoms Eyes: Reports: No symptoms Ears, Nose, Mouth, Throat: Reports: No symptoms Respiratory: Reports: Short of air (mild ) Cardiac: Reports: Chest pain GI: Reports: No symptoms : Reports: No symptoms Musculoskeletal: Reports: No symptoms Skin: Reports: No symptoms Neurological: Reports: No symptoms Endocrine: Reports: No symptoms Hematologic/Lymphatic: Reports: No symptoms All Other Systems: Reviewed and Negative Past Medical History - Past Medical History Previously Healthy: Yes Endocrine: Reports: None Cardiovascular: Reports: None Respiratory: Reports: Asthma Hematological: Reports: None Gastrointestinal: Reports: None Genitourinary: Reports: None Neuro/Psych: Reports: Anxiety, Depression Musculoskeletal: Reports: None Cancer: Reports: None Last Menstrual Period: 01/24/17 - Surgical History General Surgical History: Reports: Other (cystoscopy 2014 ) - Family History Family History: Reports: Diabetes, Other (Hyperlipidemia ) - Social History Smoking Status: Former smoker Hx Substance Use: No Alcohol Screening: None - Immunizations Tetanus Shot up to Date: No Physical Exam - Physical Exam Appearance: Ill-appearing, Obese Ill-appearing: Mild Pain Distress: Moderate Neck: Supple Respiratory: Airway patent, Breath sounds clear, Breath sounds equal, Respirations nonlabored Cardiovascular: RRR, Pulses normal, No rub, No murmur GI/: Soft, Nontender, No masses, Bowel sounds normal, No Organomegaly Musculoskeletal: Normal strength, ROM intact, No edema, No calf tenderness Skin: Warm, Dry, Normal color Neurological: Sensation intact, Motor intact, Reflexes intact, Cranial nerves intact, Alert, Oriented Psychiatric: Affect appropriate, Mood appropriate Interpretation - Radiology Interpretation Radiology Interpretation By: ED Physician Radiology Results: Negative Exam Interpreted: CXR - EKG Interpretation Time of EKG #1: 14:51 Rate: Normal Rhythm: Sinus Ectopy: None [place]: NL ST Segment: Normal Interpretation: normal sinsus Re-Evaluation - Re-Evaluation Time of Re-Evaluation: 15:59 Status: Improved Vital Signs Stable: Yes Pain Level: better Critical Care Note - Critical Care Note Total Time (mins): 0 Course - Course Hematology/Chemistry: 01/31/17 15:05 01/31/17 15:05 Orders, Labs, Meds: Lab Review 01/31/17 01/31/17 01/31/17 15:05 15:05 15:05 WBC 13.97 H RBC 4.75 Hgb 12.8 Hct 39.2 MCV 82.5 MCH 26.9 L MCHC 32.7 RDW Coeff of Jennifer 13.7 Plt Count 378 Immature Gran % (Auto) 0.4 Neut % (Auto) 60.3 Lymph % (Auto) 27.8 [place] % (Auto) 5.9 Eos % (Auto) 4.9 Baso % (Auto) 0.7 Immature Gran # (Auto) 0.1 Neut # 8.4 H Lymph # 3.9 H [place] # 0.8 Eos # 0.7 Baso # 0.1 D-Dimer (Manual) 567.07 Sodium 139 Potassium 3.9 Chloride 105 Carbon Dioxide 29 Anion Gap 8.9 BUN 9 Creatinine 0.81 Estimated GFR (MDRD) 88.00 BUN/Creatinine Ratio 11.11 Glucose 86 Calcium 9.6 Total Bilirubin 0.26 AST 14 L ALT 17 Alkaline Phosphatase 77 Troponin I < 0.0100 Total Protein 7.8 Albumin 3.4 Globulin 4.4 Albumin/Globulin Ratio 0.77 Orders Category Date Time Status EKG-(ED ONLY) Stat CARDIO 01/31/17 14:49 Completed CBC W/ AUTO DIFF Stat LAB 01/31/17 15:05 Completed COMPREHENSIVE METABOLIC PANEL Stat LAB 01/31/17 15:05 Completed D-DIMER Stat LAB 01/31/17 15:05 Completed TROPONIN I Stat LAB 01/31/17 15:05 Completed Ketorolac Tromethamine [Toradol] MEDS 01/31/17 15:04 Discontinued 60 mg IM ONCE STA CHEST, 2 VIEWS PA & LAT Stat RADS 01/31/17 14:50 Completed Medications Discontinued Medications Generic Name Dose Route Start Last Admin Trade Name Freq PRN Reason Stop Dose Admin Ketorolac Tromethamine 60 mg 01/31/17 15:04 01/31/17 15:24 Toradol IM 01/31/17 15:05 60 mg ONCE STA Administration Vital Signs: Temp Pulse Resp BP Pulse Ox 01/31/17 14:26 97.7 F 91 H 20 151/102 H 97 JESS Risk Score Age >/= 65: No >/= 3 CAD Risk Factors: No Known CAD (Stenosis >/= 50%): No ASA Use in Past 7 Days: No Severe Angina (>/= 2 episodes in 24 hours): No EKG ST Changes >/= 0.5mm: No Postive Cardiac Marker: No JESS Total Score: 0 JESS Risk Score: Risk Score Odds of by 30D 0 0.1 (0.1-0.2) 1 0.3 (0.2-0.3) 2 0.4 (0.3-0.5) 3 0.7 (0.6-0.9) 4 1.2 (1.0-1.5) 5 2.2 (1.9-2.6) 6 3.0 (2.5-3.6) 7 4.8 (3.8-6.1) Departure - Departure Time of Disposition: 15:59 Disposition: HOME SELF-CARE Discharge Problem: Pleurisy Instructions: Pleurisy (ED) Condition: Fair Pt referred to PMD for follow-up: Yes Additional Instructions: Take pain medications as prescribed Follow up with PCP in 3 days Prescriptions: Hydrocodone/Acetaminophen [[place] 5-325 Tablet] 1 tab PO Q6HR PRN #12 tablet PRN Reason: PAIN Ibuprofen [Motrin] 600 mg PO Q6H PRN #30 tablet PRN Reason: Analgesia Allergies/Adverse Reactions: Allergies Sulfa (Sulfonamide Antibiotics) Allergy (Mild, Verified 01/31/17 14:31) Itching methylphenidate [From Ritalin] Adverse Reaction (Verified 01/31/17 14:31) perphenazine [From Trilafon] Adverse Reaction (Verified 01/31/17 14:31) quetiapine [From Seroquel] Adverse Reaction (Verified 01/31/17 14:31) Home Medications: Ambulatory Orders Bupropion HCl [Wellbutrin Sr] 150 mg PO DAILY 12/06/15 [place] Carbonate 300 mg PO QID 12/06/15 Albuterol Sulfate [Proair Hfa] 2 puff IH Q6H 07/09/16 Montelukast Sodium [Singulair] 10 mg PO BEDTIME 07/09/16 Hydrocodone/Acetaminophen [[place] 5-325 Tablet] 1 tab PO Q6HR PRN #12 tablet 11/10 Ibuprofen [Motrin] 600 mg PO Q6H PRN #30 tablet 01/31/17 Disposition Discussed With: Patient
[2017-01-31] MEDS ORDERED: TORADOL IM STA (15:04)
[2017-01-31 15:15] LABS: BASOPHILS # (AUTO) 0.1 K/uL (0-0.2); BASOPHILS % (AUTO) 0.7 % (0.0-3.0); EOSINOPHILS # (AUTO) 0.7 K/ul (0.0-0.7); EOSINOPHILS % (AUTO) 4.9 % (0.0-7.0); HEMATOCRIT 39.2 % (37.0-47.0); HEMOGLOBIN 12.8 g/dl (12.0-16.0); IMMATURE GRANULOCYTE % (AUTO) 0.4 % (0.0-5.0); LYMPHOCYTES # (AUTO) 3.9 K/uL (0.60-3.4); LYMPHOCYTES % (AUTO) 27.8 (10.0-50.0); MEAN CORPUSCULAR HEMOGLOBIN 26.9 pg (27.0-31.0); MEAN CORPUSCULAR HGB CONC 32.7 (31.8-35.4); MEAN CORPUSCULAR VOLUME 82.5 fl (81.0-99.0); MONOCYTES # (AUTO) 0.8 K/uL (0.4-2.0); MONOCYTES % (AUTO) 5.9 (0-10); NEUTROPHILS # (AUTO) 8.4 K/ul (2.0-6.9); NEUTROPHILS % (AUTO) 60.3; PLATELET COUNT 378 10^3/uL (140-440); RED BLOOD COUNT 4.75 10^6/ul (4.20-5.40); WHITE BLOOD COUNT 13.97 K/ul (4.6-10.2)
--- NOTE | 2017-01-31 15:16 | DI ---
EXAM: CHEST FRONTAL AND LATERAL VIEWS HISTORY: Cough. COMPARISON: 07/31/2016 FINDINGS: Heart size and mediastinal contour remain within normal limits. No acute infiltrates. Normal vascularity with no pleural fluid or pneumothorax. The bony thorax has no acute finding. IMPRESSION: No acute process.
[2017-01-31 15:43] LABS: ALANINE AMINOTRANSFERASE 17 U/L (12-78); ALBUMIN 3.4 g/dL (3.4-5.0); ALBUMIN/GLOBULIN RATIO 0.77; ALKALINE PHOSPHATASE 77 U/L (42-98); ANION GAP 8.9; ASPARTATE AMINO TRANSFERASE 14 U/L (15-37); BILIRUBIN,TOTAL 0.26 mg/dL (0.00-1.20); BLOOD UREA NITROGEN 9 mg/dL (7-18); BUN/CREATININE RATIO 11.11; CALCIUM 9.6 mg/dL (8.2-10.2); CARBON DIOXIDE 29 mmol/L (21-32); CHLORIDE 105 mmol/L (98-107); CREATININE 0.81 mg/dL (0.60-1.30); GLUCOSE 86 mg/dL (70-110); POTASSIUM 3.9 mmol/L (3.5-5.10); SODIUM 139 mmol/L (136-145); TOTAL PROTEIN 7.8 g/dL (6.4-8.2)
[2017-01-31 16:06] VITALS: BP 143/101
== END 2017-01-31 16:15 | disposition home or self-care (01) ==
LOC: ED 14:25
DX: R09.1 Pleurisy (principal)
CPT/HCPCS: 36415; 80053; 84484; 85025; 85379; 93005; 93010; 96372; 99283

== ENCOUNTER 2017-04-10 14:56 | Emergency (ER) ==
[2017-04-10 15:00] VITALS: BP 171/105; TEMP 98.1; BMI 62.6
[2017-04-10 15:27] LABS: BASOPHILS % (AUTO) 0.3 % (0.0-3.0); EOSINOPHILS # (AUTO) 0.5 K/ul (0.0-0.7); EOSINOPHILS % (AUTO) 4.6 % (0.0-7.0); HEMATOCRIT 32.4 % (37.0-47.0); HEMOGLOBIN 10.8 g/dl (12.0-16.0); IMMATURE GRANULOCYTE % (AUTO) 0.5 % (0.0-5.0); LYMPHOCYTES # (AUTO) 2.5 K/uL (0.60-3.4); LYMPHOCYTES % (AUTO) 21.9 (10.0-50.0); MEAN CORPUSCULAR HGB CONC 33.3 (31.8-35.4); MONOCYTES # (AUTO) 0.7 K/uL (0.4-2.0); MONOCYTES % (AUTO) 6.2 (0-10); NEUTROPHILS # (AUTO) 7.7 K/ul (2.0-6.9); NEUTROPHILS % (AUTO) 66.5; PLATELET COUNT 347 10^3/uL (140-440); WHITE BLOOD COUNT 11.56 K/ul (4.6-10.2)
[2017-04-10 15:48] LABS: SERUM PREGNANCY INTERNAL QC INTERNAL QC VALID
[2017-04-10 15:49] LABS: ALBUMIN 3.1 g/dL (3.4-5.0); ALBUMIN/GLOBULIN RATIO 0.7; ANION GAP 13.7; BILIRUBIN,TOTAL 0.24 mg/dL (0.00-1.20); BUN/CREATININE RATIO 7.59; CALCIUM 9.1 mg/dL (8.2-10.2); CREATININE 0.79 mg/dL (0.60-1.30); POTASSIUM 3.7 mmol/L (3.5-5.10); TOTAL PROTEIN 7.5 g/dL (6.4-8.2)
--- NOTE | 2017-04-10 16:27 | CT ---
EXAM: CT Abdomen without contrast. CT Pelvis without contrast. HISTORY: Left lower quadrant pain. COMPARISON: 07/12/2016. TECHNIQUE: Multiple axial images of the abdomen and pelvis were obtained without intravenous contras t. Images were reformatted in the coronal plane. FINDINGS: Please note that evaluation of the abdominal and pelvic structures is limited due to lack of intravenous contrast. Lung bases are clear. No acute osseous abnormality detected. The liver is enlarged and slightly low density. The gallbladder, pancreas, spleen, adrenal glands, a nd kidneys are unremarkable. No calcified renal stones or hydronephrosis identified.. No ureteral o r bladder calculi seen. Bladder is normal. The bowel is normal in course and caliber without evidence for obstruction or inflammatory process. The appendix is normal. Uterus demonstrates normal contour. Within the left adnexa is a 6.8 x 5 x 5 cm fluid density lesion without adjacent inflammation. No free fluid or free air identified. IMPRESSION: 1. No acute abnormality within the abdomen pelvis. 2. Probable left ovarian cyst. Correlation with ultrasound recommended. 3. Hepatomegaly with fatty infiltration.
--- NOTE | 2017-04-10 16:41 | US ---
Exam: Transvaginal ultrasonographic evaluation of the pelvis. Comparison: CT performed on 04/10/2017. This same day. Reason for exam: Pain. FINDINGS: The uterus measures approximately 5.55 x 3.64 x 4.49 cm. Nabothian cyst is seen within th e cervix measuring up to 0.44 cm. The endometrium measures 0.47 cm which is within normal limits. The ovaries are not seen on the exam ination. There is a large cystic structure in the region of the left adnexa measuring approximately 5.17 x 4.9 9 x 4.49 cm without interval vascularity. Impression: 1. Large cystic structure in the region of the left adnexa likely represents a large ovarian cyst. 2. The left and right ovaries were not seen on the examination. 3. The uterus appears grossly unremarkable with a Nabothian cyst in the cervix. Report faxed at 1635 hours on 04/10/2017.
--- NOTE | 2017-04-10 17:19 | ED.PDOC ---
General ED Provider: Dr. JUANY CERON Chief Complaint: Abdominal Pain Stated Complaint: ABDOMINAL PAIN Time Seen by Physician: 15:00 (SEEN WITH NURSING STAFF AT TIME ) Mode of Arrival: Walk-In Information Source: Patient Exam Limitations: No limitations Primary Care Provider: CAROLA ROBLES Referred to ED by: Other Nursing and Triage Documentation Reviewed and Agree: Yes GI Complaint Exam - Abdominal Pain Complaint/Exam Onset: Gradual Duration: CHRONIC PAIN Symptoms Are: Still present Timing: Constant Initial Severity: Moderate Current Severity: Mild Location of Pain: LLQ Character: Reports: Aching Aggravating: Reports: None Alleviating: Reports: None Associated Signs and Symptoms: Denies: Diaphoresis, Fever, Cough, Chest pain, Dizziness, Back pain, Constipation, Blood in stool, Dysuria, Urinary frequency, Decreased urine output, Decreased appetite, Vaginal bleeding, Vaginal discharge , Nausea, Vomiting, Diarrhea, Sore throat, Decreased activity Related History: Reports: Similar episode [employer] History: Reports: Ovarian cyst AAA Risk Factors: Reports: None Cardiac Risk Factors: Reports: None Ectopic Risk Factors: Reports: None Ovarian Torsion Risk Factors: Reports: None Surgical Obstruction Risk Factors: Reports: None Related Surgical History: Reports: None Patient Rh Status: Unknown Abdominal Findings: Present: None Differential Diagnoses: Bowel Obstruction, Constipation, Diverticulitis, Gastroenteritis Review of Systems - Review Of Systems Constitutional: Reports: No symptoms Eyes: Reports: No symptoms Ears, Nose, Mouth, Throat: Reports: No symptoms Respiratory: Reports: No symptoms Cardiac: Reports: No symptoms GI: Reports: Abdominal pain : Reports: No symptoms Musculoskeletal: Reports: No symptoms Skin: Reports: No symptoms Neurological: Reports: No symptoms Endocrine: Reports: No symptoms Hematologic/Lymphatic: Reports: No symptoms All Other Systems: Reviewed and Negative Past Medical History - Past Medical History Previously Healthy: Yes Endocrine: Reports: None Cardiovascular: Reports: None Respiratory: Reports: Asthma Hematological: Reports: None Gastrointestinal: Reports: None Genitourinary: Reports: None Neuro/Psych: Reports: Anxiety, Depression Musculoskeletal: Reports: None Cancer: Reports: None Last Menstrual Period: 03/27/17 - Surgical History General Surgical History: Reports: Other (cystoscopy 2014 ) - Family History Family History: Reports: Diabetes, Other (Hyperlipidemia ) - Social History Smoking Status: Former smoker Hx Substance Use: No Alcohol Screening: None - Immunizations Tetanus Shot up to Date: No Physical Exam - Physical Exam Appearance: Well-appearing, No pain distress, Well-nourished Eyes: CHARLY, EOMI, Conjunctiva clear ENT: Ears normal, Nose normal, Oropharynx normal Respiratory: Airway patent, Breath sounds clear, Breath sounds equal, Respirations nonlabored Cardiovascular: RRR, Pulses normal, No rub, No murmur GI/: Soft, Nontender, No masses, Bowel sounds normal, No Organomegaly Musculoskeletal: Normal strength, ROM intact, No edema, No calf tenderness Skin: Warm, Dry, Normal color Neurological: Sensation intact, Motor intact, Reflexes intact, Cranial nerves intact, Alert, Oriented Psychiatric: Affect appropriate, Mood appropriate Interpretation - Radiology Interpretation Radiology Interpretation By: Radiologist Radiology Results: Positive (OVARY CYST) Critical Care Note - Critical Care Note Total Time (mins): 0 Course - Course Hematology/Chemistry: 04/10/17 15:24 12 15:24 Orders, Labs, Meds: Lab Review 04/10/17 04/10/17 12 15:24 15:24 Unknown WBC 11.56 H RBC 4.00 L Hgb 10.8 L Hct 32.4 L MCV 81.0 MCH 27.0 MCHC 33.3 RDW Coeff of Jennifer 13.3 Plt Count 347 Immature Gran % (Auto) 0.5 Neut % (Auto) 66.5 Lymph % (Auto) 21.9 Bennett % (Auto) 6.2 Eos % (Auto) 4.6 Baso % (Auto) 0.3 Immature Gran # (Auto) 0.1 Neut # 7.7 H Lymph # 2.5 Bennett # 0.7 Eos # 0.5 Baso # 0.0 Sodium 140 Potassium 3.7 Chloride 106 Carbon Dioxide 24 Anion Gap 13.7 BUN 6 L Creatinine 0.79 Estimated GFR (MDRD) 90.00 BUN/Creatinine Ratio 7.59 Glucose 84 Calcium 9.1 Total Bilirubin 0.24 AST 12 L ALT 7 L Alkaline Phosphatase 70 Total Protein 7.5 Albumin 3.1 L Globulin 4.4 Albumin/Globulin Ratio 0.70 Amylase 43 Lipase 9 Serum , Qual Negative Orders Category Date Time Status AMYLASE Stat LAB 04/10/17 15:24 Completed CBC W/ AUTO DIFF Stat LAB 04/10/17 15:24 Completed COMPREHENSIVE METABOLIC PANEL Stat LAB 04/10/17 15:24 Completed LIPASE Stat LAB 04/10/17 15:24 Completed SERUM Stat LAB 04/10/17 Completed URINALYSIS C & S IF INDICATED Stat LAB 04/10/17 15:[address] ABDOMEN/PELVIS WO CONTRAST Stat RADS 04/10/17 15:14 Completed U/S PELVIS CARTAGENA VAGINAL/NON OB Stat RADS 04/10/17 15:15 Completed Vital Signs: Temp Pulse Resp BP Pulse Ox 04/10/17 14:56 98.1 F 105 H 20 171/105 H 98 Departure - Departure Time of Disposition: 17:19 Disposition: HOME SELF-CARE Discharge Problem: Abdominal pain Instructions: Ovarian Cyst (ED), Abdominal Pain (ED) Condition: Good Pt referred to PMD for follow-up: Yes Additional Instructions: Please call your Family Physician as soon as possible to schedule a follow-up appointment. Allergies/Adverse Reactions: Allergies Sulfa (Sulfonamide Antibiotics) Allergy (Mild, Verified 04/10/17 15:00) Itching methylphenidate [From Ritalin] Adverse Reaction (Verified 04/10/17 15:00) perphenazine [From Trilafon] Adverse Reaction (Verified 04/10/17 15:00) quetiapine [From Seroquel] Adverse Reaction (Verified 04/10/17 15:00) Home Medications: Ambulatory Orders [facility] Carbonate 300 mg PO QID 12/06/15 Albuterol Sulfate [Proair Hfa] 2 puff IH Q6H 07/09/16 Ibuprofen [Motrin] 600 mg PO Q6H PRN #30 tablet 01/31/17 Diazepam 2 mg PO DAILY 02/18/17 Metformin HCl 500 mg PO DAILY tab-cap 02/18/17 Disposition Discussed With: Patient
== END 2017-04-10 17:27 | disposition home or self-care (01) ==
LOC: ED 14:56
DX: N83.202 Unspecified ovarian cyst, left side (principal)
CPT/HCPCS: 36415; 80053; 82150; 83690; 84703; 85025; 99283

== ENCOUNTER 2017-06-19 18:55 | Emergency (ER) | payer OTHER ==
[2017-06-19 19:07] VITALS: BP 133/81; TEMP 98.9; BMI 57.8
[2017-06-19] MEDS ORDERED: DECADRON 4 MG/ML SDV IM STA (19:27)
--- NOTE | 2017-06-19 19:32 | ED.PDOC ---
General ED Provider: Dr. GLORIA COLEMAN Chief Complaint: Cough Stated Complaint: Came for the coughing, congestion, was seen in ER, had Ct chest done, started her on the antibiotics and steroids, says she is not better. Time Seen by Physician: 19:30 Mode of Arrival: Walk-In Information Source: Patient Primary Care Provider: CAROLA ROBLES Nursing and Triage Documentation Reviewed and Agree: Yes Reviewed sepsis parameters & appropriate labs ordered?: No System Inflammatory Response Syndrome: Not Applicable Sepsis Protocol: For patient's 13 years and over: Temp is 96.8 and below OR 101 and greater Pulse >90 BPM Resp >20/minute Acutely Altered Mental Status Are patient's symptoms suggestive of a new infection, such as: -Pneumonia -Skin, Soft Tissue -Endocarditis -UTI -Bone, Joint Infection -Implantable Device -Acute Abdominal Infection -Wound Infection -Meningitis -Blood Stream Catheter Infection -Unknown Respiratory Complaint Exam - Respiratory Complaint/Exam Symptoms Are: Still present Timing: Constant Initial Severity: Mild Current Severity: Mild Location: Chest Character: Reports: Productive cough Aggravating: Reports: URI Alleviating: Reports: None Associated Signs and Symptoms: Reports: URI, Nasal congestion, Hoarseness. Denies: Rapid breathing, Dyspnea, Fever, Chills, Chest pain, Pleuritic chest pain, Wheezing, Hemoptysis, Dizziness, Calf pain, Calf swelling, Edema, Sinus discomfort, Vomiting, Sore throat, Weight loss, Decreased oral intake, Increased thirst, Increased appetite, Increased urination Related History: Reports: Similar episode History of Healthcare-Acquired Pneumonia: No Related Surgical History: Reports: None Pulmonary Embolism Risk Factors: None Cardiac Risk Factors: Reports: None Pseudomonas Risk Factors: Reports: None Tuberculosis Risk Factors: Reports: None Status Asthmaticus Risk Factors: Reports: None Home Oxygen Use: No Recent Stress Test: No Recent Echo/LV Function: No Current Antibiotic Use: No Current Asthma Medication Use: No Respiratory Distress: None Inadequate Respiratory Effort: No Dysphagia Present: No Stridor Present: No JVD Present: No Accessory Muscle Use: No Retractions: Not Present Diminished Breath Sounds: No Prolonged Respiration: Inspiratory phase Sinus Tenderness: None Grunting Respirations: No Kussmaul Respirations: No Differential Diagnoses: Pneumonia, Bronchitis Review of Systems - Review Of Systems Constitutional: Reports: No symptoms, Weakness Eyes: Reports: No symptoms Ears, Nose, Mouth, Throat: Reports: No symptoms Respiratory: Reports: Cough Cardiac: Reports: No symptoms GI: Reports: No symptoms : Reports: No symptoms Musculoskeletal: Reports: No symptoms Skin: Reports: No symptoms Neurological: Reports: No symptoms Endocrine: Reports: No symptoms Hematologic/Lymphatic: Reports: No symptoms All Other Systems: Reviewed and Negative Past Medical History - Past Medical History Previously Healthy: Yes Endocrine: Reports: None Cardiovascular: Reports: None Respiratory: Reports: Asthma Hematological: Reports: None Gastrointestinal: Reports: None Genitourinary: Reports: None Neuro/Psych: Reports: Anxiety, Depression Musculoskeletal: Reports: None Cancer: Reports: None Last Menstrual Period: 06/13/17 - Surgical History General Surgical History: Reports: Other (cystoscopy 2014 ) - Family History Family History: Reports: Diabetes, Other (Hyperlipidemia ) - Social History Smoking Status: Former smoker Hx Substance Use: No Alcohol Screening: None - Immunizations Tetanus Shot up to Date: Yes (unsure) Physical Exam - Physical Exam Appearance: Well-appearing, No pain distress, Well-nourished Eyes: CHARLY, EOMI, Conjunctiva clear ENT: Ears normal, Nose normal, Oropharynx normal Respiratory: Airway patent, Breath sounds clear, Breath sounds equal, Respirations nonlabored Cardiovascular: RRR, Pulses normal, No rub, No murmur GI/: Soft, Nontender, No masses, Bowel sounds normal, No Organomegaly Musculoskeletal: Normal strength, ROM intact, No edema, No calf tenderness Skin: Warm, Dry, Normal color Neurological: Sensation intact, Motor intact, Reflexes intact, Cranial nerves intact, Alert, Oriented Psychiatric: Affect appropriate, Mood appropriate Interpretation - Radiology Interpretation Radiology Interpretation By: ED Physician Radiology Results: Negative Exam Interpreted: CXR Critical Care Note - Critical Care Note Total Time (mins): 15 Course - Course Orders, Labs, Meds: Orders Category Date Time Status Dexamethasone 4 mg/ml Inj [Decadron 4 mg/ml Sdv] MEDS 06/19/17 19:27 Discontinued 4 mg IM ONCE STA CHEST, 2 VIEWS PA & LAT Stat RADS 06/19/17 19:27 Taken Medications Discontinued Medications Generic Name Dose Route Start Last Admin Trade Name Freq PRN Reason Stop Dose Admin Dexamethasone Sodium Phosphate 4 mg 06/19/17 19:27 06/19/17 19:44 Decadron 4 Mg/Ml Sdv IM 06/19/17 19:28 4 mg ONCE STA Administration Vital Signs: Temp Pulse Resp BP Pulse Ox 06/19/17 18:56 98.9 F 74 20 133/81 95 Departure - Departure Time of Disposition: 20:42 Disposition: HOME SELF-CARE Discharge Problem: URTI (acute upper respiratory infection) Instructions: Upper Respiratory Infection (ED) Condition: Stable Pt referred to PMD for follow-up: Yes IPMP verified?: No Additional Instructions: Continue Augmentin and prednisone Increase Hydration Got the papers from [facility], If not better come back Prescriptions: Guaifenesin/Codeine Phosphate [Robitussin AC Syrup] 10 ml PO Q6H #1 bottle Guaifenesin/Codeine Phosphate [Robitussin AC Syrup] 10 ml PO Q12H #1 bottle Allergies/Adverse Reactions: Allergies Sulfa (Sulfonamide Antibiotics) Allergy (Mild, Verified 06/19/17 19:08) Itching methylphenidate [From Ritalin] Adverse Reaction (Verified 06/19/17 19:08) perphenazine [From Trilafon] Adverse Reaction (Verified 06/19/17 19:08) quetiapine [From Seroquel] Adverse Reaction (Verified 06/19/17 19:08) Home Medications: Ambulatory Orders [place] Carbonate 300 mg PO QID 12/06/15 Albuterol Sulfate [Proair Hfa] 2 puff IH Q6H 07/09/16 Ibuprofen [Motrin] 600 mg PO Q6H PRN #30 tablet 01/31/17 Metformin HCl 500 mg PO DAILY tab-cap 02/18/17 Alprazolam [Xanax] 0.5 mg PO BEDTIME 06/19/17 Guaifenesin/Codeine Phosphate [Robitussin AC Syrup] 10 ml PO Q12H #1 bottle Guaifenesin/Codeine Phosphate [Robitussin AC Syrup] 10 ml PO Q6H #1 bottle 06/19 Disposition Discussed With: Patient
--- NOTE | 2017-06-20 06:31 | DI ---
EXAM: PA and lateral views of the chest HISTORY: Cough COMPARISON: Chest Xray from 04/02/2017 FINDINGS: Lungs are clear with no lobar consolidation, failure, large effusion or significant atelec tasis. Cardiac and mediastinal silhouettes show no acute abnormality. No acute osseous or soft tiss ue abnormalities. IMPRESSION: No active disease.
== END 2017-06-19 20:50 | disposition home or self-care (01) ==
LOC: ED 18:55
DX: J06.9 Acute upper respiratory infection, unspecified (principal); R05 Cough
CPT/HCPCS: 96372; 99283

== ENCOUNTER 2017-10-08 23:52 | Emergency (ER) | payer OTHER ==
[2017-10-09 00:11] VITALS: BP 143/84; TEMP 98.9; BMI 61.0
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
[2017-10-09] MEDS ORDERED: SODIUM CHLORIDE 1,000 ML IV STA (00:33)
--- NOTE | 2017-10-09 01:02 | CT ---
EXAM: CT head without contrast. HISTORY: Change in mental status. PROCEDURE: Contiguous axial CT images of the head without contrast with coronal and sagittal reforma ts. FINDINGS: The ventricles and basal cisterns are normal in size and configuration. No evidence of mas s or midline shift. No intracranial hemorrhage or evidence of large vessel infarct. No extra-axial fluid collection. The paranasal sinuses and mastoid air cells are well-aerated. Impression: Negative CT of the head.
== END 2017-10-09 11:34 ==
LOC: ED 23:52
DX: F32.9 Major depressive disorder, single episode, unspecified (principal); E11.9 Type 2 diabetes mellitus without complications; R41.0 Disorientation, unspecified; R63.1 Polydipsia; R35.8 Other polyuria; Z79.899 Other long term (current) drug therapy
CPT/HCPCS: 36415; 80053; 80178; 80306; 80307; 81001; 81025; 82009; 82962; 85025; 87086; 96360; 96361; 99285

== ENCOUNTER 2018-04-27 15:42 | Emergency (ER) ==
[2018-04-27 15:46] VITALS: BP 136/69; TEMP 99.3; BMI 56.3
[2018-04-27] MEDS ORDERED: ROCEPHIN IM STA (16:39)
[2018-04-27] MEDS ORDERED: LIDOCAINE HCL 1% SDV IM STA (16:39)
--- NOTE | 2018-04-27 16:45 | ED.PDOC ---
General ED Provider: Dr. JUANY CERON Chief Complaint: Urinary Problem Stated Complaint: dysuria Time Seen by Physician: 16:00 Mode of Arrival: Walk-In Information Source: Patient, Family Exam Limitations: No limitations Primary Care Provider: CAROLA ROBLES Nursing and Triage Documentation Reviewed and Agree: Yes Does patient meet sepsis criteria?: Yes If yes, has appropriate treatment been initiated?: No (seen with javier) System Inflammatory Response Syndrome: Not Applicable Sepsis Protocol: For patient's 13 years and over: Temp is 96.8 and below OR 101 and greater Pulse >90 BPM Resp >20/minute Acutely Altered Mental Status Are patient's symptoms suggestive of a new infection, such as: -Pneumonia -Skin, Soft Tissue -Endocarditis -UTI -Bone, Joint Infection -Implantable Device -Acute Abdominal Infection -Wound Infection -Meningitis -Blood Stream Catheter Infection -Unknown Complaint Exam - Complaint/Exam Patient Complains of: Reports: Dysuria Onset/Duration: 2 days Symptoms Are: Still present Timing: Intermittent Initial Severity: Mild Current Severity: Mild Location of Pain: Reports: Suprapubic Character: Reports: Dull Aggravating: Reports: Urination Alleviating: Reports: None Associated Signs and Symptoms: Reports: Dysuria. Denies: Diaphoresis, Back pain , Fever, Hematuria, Constipation, Blood in stool, Rectal pain, Appetite change, Nausea, Vomiting, Decreased urine output, Increased urine frequency, Increased thirst, Decreased activity, Lethargy, Abdominal Pain, Bubble bath use, Vaginal bleeding, Vaginal discharge, Genital swelling, Genital blisters, Retained foreign body Ectopic Risk Factors: Reports: None Ovarian Torsion Risk Factors: Reports: None Surgical Obstruction Risk Factors: Reports: None RH Status: Unknown Related Surgical History: Reports: None Abdominal Findings: Present: None Review of Systems - Review Of Systems Constitutional: Reports: No symptoms Eyes: Reports: No symptoms Ears, Nose, Mouth, Throat: Reports: No symptoms Respiratory: Reports: No symptoms Cardiac: Reports: No symptoms GI: Reports: No symptoms : Reports: Dysuria Musculoskeletal: Reports: No symptoms Skin: Reports: No symptoms Neurological: Reports: No symptoms Endocrine: Reports: No symptoms Hematologic/Lymphatic: Reports: No symptoms All Other Systems: Reviewed and Negative Past Medical History - Past Medical History Previously Healthy: Yes Endocrine: Reports: None Cardiovascular: Reports: None Respiratory: Reports: Asthma Hematological: Reports: None Gastrointestinal: Reports: None Genitourinary: Reports: None Neuro/Psych: Reports: Anxiety, Depression Musculoskeletal: Reports: None Cancer: Reports: None Last Menstrual Period: 2 weeks ago - Surgical History General Surgical History: Reports: Other (cystoscopy 2015 ) - Family History Family History: Reports: Diabetes, Other (Hyperlipidemia ) - Social History Smoking Status: Former smoker Hx Substance Use: No Alcohol Screening: None Physical Exam - Physical Exam Appearance: Well-appearing, No pain distress, Well-nourished Eyes: CHARLY, EOMI, Conjunctiva clear ENT: Ears normal, Nose normal, Oropharynx normal Respiratory: Airway patent, Breath sounds clear, Breath sounds equal, Respirations nonlabored Cardiovascular: RRR, Pulses normal, No rub, No murmur GI/: Soft, Nontender, No masses, Bowel sounds normal, No Organomegaly Musculoskeletal: Normal strength, ROM intact, No edema, No calf tenderness Skin: Warm, Dry, Normal color Neurological: Sensation intact, Motor intact, Reflexes intact, Cranial nerves intact, Alert, Oriented Psychiatric: Affect appropriate, Mood appropriate Critical Care Note - Critical Care Note Total Time (mins): 0 Course - Course Orders, Labs, Meds: Lab Review 04/27/18 16:02 Urine Color Yellow Urine Clarity Slightly Urine pH 7.0 Ur Specific [place] 1.020 Urine Protein 1+ Urine Glucose (UA) Negative Urine Ketones Negative Urine Blood 1+ Urine Nitrite Negative Urine Bilirubin Negative Urine Urobilinogen 0.2 Ur Leukocyte Esterase 2+ Urine Microscopic RBC 5-10 Urine Microscopic WBC 20-30 Ur Squamous Epith Cells 30-50 Orders Category Date Time Status URINALYSIS C & S IF INDICATED Stat LAB 04/27/18 16:02 Completed URINE CULTURE Stat LAB 04/27/18 16:02 Received Ceftriaxone Sodium [Rocephin] MEDS 04/27/18 16:39 Stat 1 gm IM ONCE STA Lidocaine HCl/Pf [Lidocaine HCl 1% Sdv] MEDS 04/27/18 16:39 Stat 2.1 ml IM ONCE STA Medications Discontinued Medications Generic Name Dose Route Start Last Admin Trade Name Freq PRN Reason Stop Dose Admin Ceftriaxone Sodium 1 gm 04/27/18 16:39 Rocephin IM 04/27/18 16:40 ONCE STA Lidocaine HCl 2.1 ml 04/27/18 16:39 Lidocaine Hcl 1% Sdv IM 04/27/18 16:40 ONCE STA Vital Signs: Temp Pulse Resp BP Pulse Ox 04/27/18 15:42 99.3 F 85 20 136/69 98 Departure - Departure Time of Disposition: 16:45 Disposition: HOME SELF-CARE Discharge Problem: Urinary symptoms, Urinary tract infectious disease Instructions: Urinary Tract Infection in Women (DC) Condition: Good Pt referred to PMD for follow-up: Yes IPMP verified?: No Additional Instructions: Please call your Family Physician as soon as possible to schedule a follow-up appointment. Allergies/Adverse Reactions: Allergies Sulfa (Sulfonamide Antibiotics) Allergy (Mild, Verified 04/27/18 15:48) Itching methylphenidate [From Ritalin] Adverse Reaction (Verified 04/27/18 15:48) perphenazine [From Trilafon] Adverse Reaction (Verified 04/27/18 15:48) quetiapine [From Seroquel] Adverse Reaction (Verified 04/27/18 15:48) risperidone Adverse Reaction (Verified 04/27/18 15:49) Home Medications: Ambulatory Orders Albuterol Sulfate [Proair Hfa] 2 puff IH Q6H PRN 07/09/16 Ibuprofen [Motrin] 600 mg PO Q6H PRN #30 tablet 01/31/17 Metformin HCl 500 mg PO BID tab-cap 02/18/17 Diazepam 5 mg PO DAILY 12/28/17 [place] Carbonate 600 mg PO BID 12/28/17 Bupropion HCl [Wellbutrin Xl] 300 mg PO DAILY 04/27/18 Olanzapine [Zyprexa] 5 mg PO DAILY 04/27/18
== END 2018-04-27 17:15 | disposition home or self-care (01) ==
LOC: ED 15:42
DX: R30.0 Dysuria (principal); R10.30 Lower abdominal pain, unspecified; N39.0 Urinary tract infection, site not specified
CPT/HCPCS: 81001; 87086; 87186; 96372; 99283

== ENCOUNTER 2018-07-20 19:36 | Emergency (ER) ==
[2018-07-20 19:40] VITALS: BMI 55.9
[2018-07-21 03:27] VITALS: BP 116/84; TEMP 98.6
--- NOTE | 2018-07-21 03:34 | ED.PDOC ---
General ED Provider: Dr. RYAN BLAIR-ER Chief Complaint: Psychiatric Complaint Stated Complaint: kay been sad Time Seen by Physician: 19:40 Mode of Arrival: Ambulance Information Source: Patient, Family, EMT Exam Limitations: No limitations Primary Care Provider: CAROLA ROBLES Nursing and Triage Documentation Reviewed and Agree: Yes Does patient meet sepsis criteria?: No System Inflammatory Response Syndrome: Not Applicable Sepsis Protocol: For patient's 13 years and over: Temp is 96.8 and below OR 101 and greater Pulse >90 BPM Resp >20/minute Acutely Altered Mental Status Are patient's symptoms suggestive of a new infection, such as: -Pneumonia -Skin, Soft Tissue -Endocarditis -UTI -Bone, Joint Infection -Implantable Device -Acute Abdominal Infection -Wound Infection -Meningitis -Blood Stream Catheter Infection -Unknown Psychological Complaint Exam - Psychiatric Complaint/Exam Patient Complains Of: Present: Depression Onset/Duration: one week Symptoms Are: Still present Timing: Intermittent Initial Severity: Mild Current Severity: Mild Character: Present: Depressed Aggravating: Reports: Recent stress Associated Signs And Symptoms: Denies: Hostile, Confused, Hallucinating, Paranoid behavior, Sleep disturbance, Appetite change Related History: Denies: Suicidal thoughts, Suicidal plan, Suicidal gestures, Homicidal thoughts, Homicidal plan, Homicidal gestures, Prior attempts, Recent stressors, Drug ingestion Completed Suicide Risk Factors: Patient Accompanied By: Family Patient In Custody Of Police: No Social Withdrawal Present: No Social Isolation Present: No Prior Suicide Attempt: No Injury From Prior Suicide Attempt: No Related Surgical History: Reports: None Patient Uncooperative For Exam: No Mood: Present: Depressed Appearance: Present: Clean Thought Process: Present: Logical Insight: Present: Good Memory: Intact Judgement: Normal Danger To Others: No Patient Medically Stable For: Psych evaluation, Referral, Transfer Differential Diagnoses: Depression Review of Systems - Review Of Systems Constitutional: Reports: No symptoms Eyes: Reports: No symptoms Ears, Nose, Mouth, Throat: Reports: No symptoms Respiratory: Reports: No symptoms Cardiac: Reports: No symptoms GI: Reports: No symptoms : Reports: No symptoms Musculoskeletal: Reports: No symptoms Skin: Reports: No symptoms Neurological: Reports: No symptoms Endocrine: Reports: No symptoms Hematologic/Lymphatic: Reports: No symptoms All Other Systems: Reviewed and Negative Past Medical History - Past Medical History Previously Healthy: Yes Endocrine: Reports: None Cardiovascular: Reports: None Respiratory: Reports: Asthma Hematological: Reports: None Gastrointestinal: Reports: None Genitourinary: Reports: None Neuro/Psych: Reports: Anxiety, Depression Musculoskeletal: Reports: None Cancer: Reports: None Last Menstrual Period: 2 weeks - Surgical History General Surgical History: Reports: Other (cystoscopy 2014 ) - Family History Family History: Reports: Diabetes, Other (Hyperlipidemia ) - Social History Smoking Status: Former smoker Hx Substance Use: No Alcohol Screening: None - Immunizations Tetanus Shot up to Date: Yes Physical Exam - Physical Exam Appearance: Well-appearing, No pain distress, Well-nourished Eyes: CHARLY, EOMI, Conjunctiva clear ENT: Ears normal, Nose normal, Oropharynx normal Neck: Supple Respiratory: Airway patent, Breath sounds clear, Breath sounds equal, Respirations nonlabored Cardiovascular: RRR, Pulses normal, No rub, No murmur GI/: Soft Musculoskeletal: Normal strength, ROM intact, No edema, No calf tenderness Skin: Warm, Dry, Normal color Neurological: Sensation intact, Motor intact, Reflexes intact, Cranial nerves intact, Alert, Oriented, Unresponsive Psychiatric: Affect appropriate, Mood appropriate, Depressed Critical Care Note - Critical Care Note Total Time (mins): 0 Course - Course Hematology/Chemistry: 07/20/18 19:53 07/20/18 19:53 Orders, Labs, Meds: Lab Review 07/20/18 07/20/18 07/20/18 19:53 19:53 19:53 WBC 11.57 H RBC 3.98 L Hgb 10.9 L Hct 34.0 L MCV 85.4 MCH 27.4 MCHC 32.1 RDW Coeff of Jennifer 13.3 Plt Count 301 Immature Gran % (Auto) 0.3 Neut % (Auto) 63.7 Lymph % (Auto) 24.1 [place] % (Auto) 7.5 Eos % (Auto) 3.8 Baso % (Auto) 0.6 Immature Gran # (Auto) 0.0 Neut # (Auto) 7.4 H Lymph # (Auto) 2.8 [place] # (Auto) 0.9 Eos # (Auto) 0.4 Baso # (Auto) 0.1 Sodium 139.7 Potassium 3.59 Chloride 105.9 Carbon Dioxide 24.2 Anion Gap 13.19 BUN 10.1 Creatinine 0.92 Estimated GFR (MDRD) 75.00 BUN/Creatinine Ratio 10.97 Glucose 81.6 Calcium 9.11 Total Bilirubin 0.21 AST 26.4 ALT 27.5 Alkaline Phosphatase 64.7 Total Protein 7.17 Albumin 4.37 Globulin 2.80 Albumin/Globulin Ratio 1.56 TSH 3.260 Serum , Qual Negative Urine Color Urine Clarity Urine pH Ur Specific [place] Urine Protein Urine Glucose (UA) Urine Ketones Urine Blood Urine Nitrite Urine Bilirubin Urine Urobilinogen Ur Leukocyte Esterase Salicylate Level mg/dL < 1.00 Urine Opiates Screen Ur Oxycodone Screen Urine Methadone Screen Ur Propoxyphene Screen Acetaminophen < 10.0 L Ur Barbiturates Screen U Tricyclic Antidepress Ur Phencyclidine Scrn Ur Amphetamine Screen U Methamphetamines Scrn U Benzodiazepines Scrn Urine Cocaine Screen U Cannabinoids Screen Plasma/Serum Alcohol < 10.0 07/20/18 07/20/18 20:33 20:33 WBC RBC Hgb Hct MCV MCH MCHC RDW Coeff of Jennifer Plt Count Immature Gran % (Auto) Neut % (Auto) Lymph % (Auto) [place] % (Auto) Eos % (Auto) Baso % (Auto) Immature Gran # (Auto) Neut # (Auto) Lymph # (Auto) [place] # (Auto) Eos # (Auto) Baso # (Auto) Sodium Potassium Chloride Carbon Dioxide Anion Gap BUN Creatinine Estimated GFR (MDRD) BUN/Creatinine Ratio Glucose Calcium Total Bilirubin AST ALT Alkaline Phosphatase Total Protein Albumin Globulin Albumin/Globulin Ratio TSH Serum , Qual Urine Color Yellow Urine Clarity Clear Urine pH 6.0 Ur Specific [place] 1.010 Urine Protein Negative Urine Glucose (UA) Negative Urine Ketones Negative Urine Blood Negative Urine Nitrite Negative Urine Bilirubin Negative Urine Urobilinogen 0.2 Ur Leukocyte Esterase Negative Salicylate Level mg/dL Urine Opiates Screen Negative Ur Oxycodone Screen Negative Urine Methadone Screen Negative Ur Propoxyphene Screen Negative Acetaminophen Ur Barbiturates Screen Negative U Tricyclic Antidepress Negative Ur Phencyclidine Scrn Negative Ur Amphetamine Screen Negative U Methamphetamines Scrn Negative U Benzodiazepines Scrn Positive Urine Cocaine Screen Negative U Cannabinoids Screen Negative Plasma/Serum Alcohol Orders Category Date Time Status EKG-(ED ONLY) Stat CARDIO 07/20/18 19:38 Completed Mental Health Consult [ED MENTAL HEALTH CONSULT] .ONCE EMERGENCY 07/20/18 19: 41 Active ACETAMINOPHEN Stat LAB 07/20/18 19:53 Completed BLOOD ALCOHOL Stat LAB 07/20/18 19:53 Completed CBC W/ AUTO DIFF Stat LAB 07/20/18 19:53 Completed COMPREHENSIVE METABOLIC PANEL Stat LAB 07/20/18 19:53 Completed SALICYLATE Stat LAB 07/20/18 19:53 Completed SERUM Stat LAB 07/20/18 19:53 Completed THYROID STIMULATING HORMONE Stat LAB 07/20/18 19:53 Completed URINALYSIS C & S IF INDICATED Stat LAB 07/20/18 20:33 Completed URINE DRUG SCREEN (RAPID FOR ED) [DRUG SCREEN, URINE, LAB 07/20/18 20:33 Completed RAPID] Stat Vital Signs: Temp Pulse Resp BP Pulse Ox 07/21/18 03:26 98.6 F 72 20 116/84 99 07/21/18 02:30 97.8 F 83 18 134/86 97 07/20/18 19:37 98 F 89 16 130/82 98 Departure - Departure Time of Disposition: 03:34 Disposition: HOME SELF-CARE Discharge Problem: Depression Instructions: Depression (ED) Condition: Good Pt referred to PMD for follow-up: Yes IPMP verified?: No Additional Instructions: f/u with mental health as outlined Allergies/Adverse Reactions: Allergies Sulfa (Sulfonamide Antibiotics) Allergy (Mild, Verified 07/20/18 19:40) Itching methylphenidate [From Ritalin] Adverse Reaction (Verified 07/20/18 19:40) perphenazine [From Trilafon] Adverse Reaction (Verified 07/20/18 19:40) quetiapine [From Seroquel] Adverse Reaction (Verified 07/20/18 19:40) risperidone Adverse Reaction (Verified 07/20/18 19:40) Home Medications: Ambulatory Orders Albuterol Sulfate [Proair Hfa] 2 puff IH Q6H PRN 07/09/16 Ibuprofen [Motrin] 600 mg PO Q6H PRN #30 tablet 01/31/17 Metformin HCl 500 mg PO BID tab-cap 02/18/17 Diazepam 5 mg PO DAILY 12/28/17 [place] Carbonate 600 mg PO BID 12/28/17 Bupropion HCl [Wellbutrin Xl] 300 mg PO DAILY 04/27/18 Olanzapine [Zyprexa] 5 mg PO DAILY 04/27/18 Diazepam [Valium] 5 mg PO DAILY 07/20/18 Losartan/Hydrochlorothiazide [Losartan-Hctz 100-25 mg Tab] 1 each PO DAILY 07/20 Paroxetine HCl [Paxil] 30 mg PO DAILY 07/20/18 Terazosin HCl 2 mg PO DAILY 07/20/18 Disposition Discussed With: Patient Discharge Problem: Depression Qualifiers: Depression Type: major depressive disorder Major depression recurrence: single episode Active/Remission status: currently active Major depression episode severity: mild Qualified Code(s): F32.0 - Major depressive disorder, single episode, mild
== END 2018-07-21 04:00 | disposition home or self-care (01) ==
LOC: ED 19:36
DX: F32.0 Major depressive disorder, single episode, mild (principal)
CPT/HCPCS: 36415; 80053; 80306; 80307; 81001; 84443; 84703; 85025; 93005; 93010; 99284

== ENCOUNTER 2018-07-23 20:03 | Emergency (ER) ==
[2018-07-23 20:14] VITALS: BMI 58.3
--- NOTE | 2018-07-24 00:26 | ED.PDOC ---
General ED Provider: Dr. RYAN BLAIR-ER Chief Complaint: Psychiatric Complaint Stated Complaint: hving feelings of depression and feeling suicidal Time Seen by Physician: 20:10 Mode of Arrival: Walk-In Information Source: Patient, Family Exam Limitations: No limitations Primary Care Provider: CAROLA ROBLES Nursing and Triage Documentation Reviewed and Agree: Yes Does patient meet sepsis criteria?: No System Inflammatory Response Syndrome: Not Applicable Sepsis Protocol: For patient's 13 years and over: Temp is 96.8 and below OR 101 and greater Pulse >90 BPM Resp >20/minute Acutely Altered Mental Status Are patient's symptoms suggestive of a new infection, such as: -Pneumonia -Skin, Soft Tissue -Endocarditis -UTI -Bone, Joint Infection -Implantable Device -Acute Abdominal Infection -Wound Infection -Meningitis -Blood Stream Catheter Infection -Unknown Psychological Complaint Exam - Psychiatric Complaint/Exam Patient Complains Of: Present: Depression, Suicidal thoughts Onset/Duration: several days ago Symptoms Are: Still present Timing: Constant Initial Severity: Mild Current Severity: Moderate Character: Present: Depressed Aggravating: Reports: Recent stress Associated Signs And Symptoms: Reports: Sleep disturbance Related History: Reports: Suicidal thoughts, Recent stressors Completed Suicide Risk Factors: Patient Accompanied By: Family Patient In Custody Of Police: No Social Withdrawal Present: Yes Social Isolation Present: Yes Prior Suicide Attempt: No Injury From Prior Suicide Attempt: No Related Surgical History: Reports: None Patient Uncooperative For Exam: No Mood: Present: Depressed Appearance: Present: Clean Thought Process: Present: Logical Insight: Present: Poor Memory: Intact Judgement: Normal Danger To Others: No Patient Medically Stable For: Psych evaluation, Referral, Transfer Differential Diagnoses: Depression, Suicidal Ideation Review of Systems - Review Of Systems Constitutional: Reports: No symptoms Eyes: Reports: No symptoms Ears, Nose, Mouth, Throat: Reports: No symptoms Respiratory: Reports: No symptoms Cardiac: Reports: No symptoms GI: Reports: No symptoms : Reports: No symptoms Musculoskeletal: Reports: No symptoms Skin: Reports: No symptoms Neurological: Reports: Depressed Endocrine: Reports: No symptoms Hematologic/Lymphatic: Reports: No symptoms All Other Systems: Reviewed and Negative Past Medical History - Past Medical History Previously Healthy: Yes Endocrine: Reports: None Cardiovascular: Reports: None Respiratory: Reports: Asthma Hematological: Reports: None Gastrointestinal: Reports: None Genitourinary: Reports: None Neuro/Psych: Reports: Anxiety, Depression Musculoskeletal: Reports: None Cancer: Reports: None Last Menstrual Period: beginning of June - Surgical History General Surgical History: Reports: Other (cystoscopy 2014 ) - Family History Family History: Reports: Diabetes, Other (Hyperlipidemia ) - Social History Smoking Status: Former smoker Hx Substance Use: No Alcohol Screening: None Physical Exam - Physical Exam Appearance: Well-appearing, No pain distress, Well-nourished Eyes: CHARLY, EOMI, Conjunctiva clear ENT: Ears normal, Nose normal, Oropharynx normal Neck: Supple Respiratory: Airway patent, Breath sounds clear, Breath sounds equal, Respirations nonlabored Cardiovascular: RRR, Pulses normal, No rub, No murmur GI/: Soft, Nontender, No masses, Bowel sounds normal, No Organomegaly Musculoskeletal: Normal strength, ROM intact, No edema, No calf tenderness Skin: Warm, Dry, Normal color Neurological: Sensation intact, Motor intact, Reflexes intact, Cranial nerves intact, Alert, Oriented Psychiatric: Affect appropriate, Mood appropriate, Depressed Critical Care Note - Critical Care Note Total Time (mins): 0 Course - Course Hematology/Chemistry: 07/23/18 20:26 07/23/18 20:26 Orders, Labs, Meds: Lab Review 07/23/18 07/23/18 07/23/18 20:26 20:26 20:26 WBC 12.01 H RBC 4.23 Hgb 11.7 L Hct 36.3 L MCV 85.8 MCH 27.7 MCHC 32.2 RDW Coeff of Jennifer 13.5 Plt Count 330 Immature Gran % (Auto) 0.5 Neut % (Auto) 58.6 Lymph % (Auto) 29.7 [place] % (Auto) 7.2 Eos % (Auto) 3.4 Baso % (Auto) 0.6 Immature Gran # (Auto) 0.1 Neut # (Auto) 7.0 H Lymph # (Auto) 3.6 H [place] # (Auto) 0.9 Eos # (Auto) 0.4 Baso # (Auto) 0.1 Sodium 141.2 Potassium 3.64 Chloride 106.2 Carbon Dioxide 24.5 Anion Gap 14.14 BUN 10.9 Creatinine 0.88 Estimated GFR (MDRD) 79.00 BUN/Creatinine Ratio 12.38 Glucose 90.2 Calcium 9.11 Total Bilirubin 0.19 L AST 22.8 ALT 23.9 Alkaline Phosphatase 65.7 Total Protein 7.34 Albumin 4.48 Globulin 2.86 Albumin/Globulin Ratio 1.56 TSH Serum , Qual Negative Urine Color Urine Clarity Urine pH Ur Specific [place] Urine Protein Urine Glucose (UA) Urine Ketones Urine Blood Urine Nitrite Urine Bilirubin Urine Urobilinogen Ur Leukocyte Esterase Salicylate Level mg/dL < 1.00 Urine Opiates Screen Ur Oxycodone Screen Urine Methadone Screen Ur Propoxyphene Screen Acetaminophen < 10.0 L Ur Barbiturates Screen U Tricyclic Antidepress Ur Phencyclidine Scrn Ur Amphetamine Screen U Methamphetamines Scrn U Benzodiazepines Scrn Urine Cocaine Screen U Cannabinoids Screen Plasma/Serum Alcohol < 10.0 Influ A Molecular Assay Influ B Molecular Assay 07/23/18 07/23/18 07/23/18 20:26 20:50 20:50 WBC RBC Hgb Hct MCV MCH MCHC RDW Coeff of Jennifer Plt Count Immature Gran % (Auto) Neut % (Auto) Lymph % (Auto) [place] % (Auto) Eos % (Auto) Baso % (Auto) Immature Gran # (Auto) Neut # (Auto) Lymph # (Auto) [place] # (Auto) Eos # (Auto) Baso # (Auto) Sodium Potassium Chloride Carbon Dioxide Anion Gap BUN Creatinine Estimated GFR (MDRD) BUN/Creatinine Ratio Glucose Calcium Total Bilirubin AST ALT Alkaline Phosphatase Total Protein Albumin Globulin Albumin/Globulin Ratio TSH 1.250 Serum , Qual Urine Color Yellow Urine Clarity Clear Urine pH 6.0 Ur Specific [place] 1.010 Urine Protein Negative Urine Glucose (UA) Negative Urine Ketones Negative Urine Blood Negative Urine Nitrite Negative Urine Bilirubin Negative Urine Urobilinogen 0.2 Ur Leukocyte Esterase Negative Salicylate Level mg/dL Urine Opiates Screen Negative Ur Oxycodone Screen Negative Urine Methadone Screen Negative Ur Propoxyphene Screen Negative Acetaminophen Ur Barbiturates Screen Negative U Tricyclic Antidepress Negative Ur Phencyclidine Scrn Negative Ur Amphetamine Screen Negative U Methamphetamines Scrn Negative U Benzodiazepines Scrn Positive Urine Cocaine Screen Negative U Cannabinoids Screen Negative Plasma/Serum Alcohol Influ A Molecular Assay Influ B Molecular Assay 07/24/18 01:24 WBC RBC Hgb Hct MCV MCH MCHC RDW Coeff of Jennifer Plt Count Immature Gran % (Auto) Neut % (Auto) Lymph % (Auto) [place] % (Auto) Eos % (Auto) Baso % (Auto) Immature Gran # (Auto) Neut # (Auto) Lymph # (Auto) [place] # (Auto) Eos # (Auto) Baso # (Auto) Sodium Potassium Chloride Carbon Dioxide Anion Gap BUN Creatinine Estimated GFR (MDRD) BUN/Creatinine Ratio Glucose Calcium Total Bilirubin AST ALT Alkaline Phosphatase Total Protein Albumin Globulin Albumin/Globulin Ratio TSH Serum , Qual Urine Color Urine Clarity Urine pH Ur Specific [place] Urine Protein Urine Glucose (UA) Urine Ketones Urine Blood Urine Nitrite Urine Bilirubin Urine Urobilinogen Ur Leukocyte Esterase Salicylate Level mg/dL Urine Opiates Screen Ur Oxycodone Screen Urine Methadone Screen Ur Propoxyphene Screen Acetaminophen Ur Barbiturates Screen U Tricyclic Antidepress Ur Phencyclidine Scrn Ur Amphetamine Screen U Methamphetamines Scrn U Benzodiazepines Scrn Urine Cocaine Screen U Cannabinoids Screen Plasma/Serum Alcohol Influ A Molecular Assay Negative by naat Influ B Molecular Assay Negative by naat Orders Category Date Time Status Mental Health Consult [ED MENTAL HEALTH CONSULT] .ONCE EMERGENCY 07/23/18 20: 05 Active ACETAMINOPHEN Stat LAB 07/23/18 20:26 Completed BLOOD ALCOHOL Stat LAB 07/23/18 20:26 Completed CBC W/ AUTO DIFF Stat LAB 07/23/18 20:26 Completed COMPREHENSIVE METABOLIC PANEL Stat LAB 07/23/18 20:26 Completed FLU A & B MOLECULAR [FLU A/B MOLECULAR] Stat LAB 07/24/18 01:24 Completed SALICYLATE Stat LAB 07/23/18 20:26 Completed SERUM Stat LAB 07/23/18 20:26 Completed TSH [THYROID STIMULATING HORMONE] Stat LAB 07/23/18 20:26 Completed URINALYSIS C & S IF INDICATED Stat LAB 07/23/18 20:50 Completed URINE DRUG SCREEN (RAPID FOR ED) [DRUG SCREEN, URINE, LAB 07/23/18 20:50 Completed RAPID] Stat Vital Signs: Temp Pulse Resp BP Pulse Ox 07/23/18 20:04 99.8 F H 81 20 141/82 H 96 Departure - Departure Time of Disposition: 02:02 Disposition: TSF SHORT-TRM HOSP Discharge Problem: Depression, Suicidal ideation Instructions: Depression (ED) Condition: Good Pt referred to PMD for follow-up: Yes IPMP verified?: No Allergies/Adverse Reactions: Allergies Sulfa (Sulfonamide Antibiotics) Allergy (Mild, Verified 07/23/18 20:06) Itching/RASH methylphenidate [From Ritalin] Adverse Reaction (Verified 07/23/18 20:06) ELEVATES BP perphenazine [From Trilafon] Adverse Reaction (Verified 07/23/18 20:06) NUMBNESS TO ARMS quetiapine [From Seroquel] Adverse Reaction (Verified 07/23/18 20:06) Rash risperidone Adverse Reaction (Verified 07/23/18 20:07) "GETS PARANOID" Home Medications: Ambulatory Orders Albuterol Sulfate [Proair Hfa] 2 puff IH Q6H PRN 07/09/16 Ibuprofen [Motrin] 600 mg PO Q6H PRN #30 tablet 01/31/17 Metformin HCl 500 mg PO BID tab-cap 02/18/17 [place] Carbonate 600 mg PO BID 12/28/17 Bupropion HCl [Wellbutrin Xl] 300 mg PO DAILY 04/27/18 Olanzapine [Zyprexa] 10 mg PO DAILY 04/27/18 Diazepam [Valium] 5 mg PO DAILY 07/20/18 Paroxetine HCl [Paxil] 30 mg PO DAILY 07/20/18 Terazosin HCl 2 mg PO DAILY 07/20/18 Control Pill 1 tab PO DAILY 07/23/18 Losartan Potassium [Cozaar] 25 mg PO DAILY 07/23/18 Transfer Form Completed: Yes Disposition Discussed With: Patient, Family Discharge Problem: Depression Qualifiers: Depression Type: major depressive disorder Major depression recurrence: recurrent Active/Remission status: currently active Major depression episode severity: moderate Qualified Code(s): F33.1 - Major depressive disorder, recurrent, moderate
[2018-07-24 06:21] VITALS: BP 125/77; TEMP 100.1
== END 2018-07-24 06:50 | disposition short-term general hospital (02) ==
LOC: ED 20:03
DX: R45.851 Suicidal ideations (principal); F33.1 Major depressive disorder, recurrent, moderate; Z79.899 Other long term (current) drug therapy
CPT/HCPCS: 36415; 80053; 80306; 80307; 81001; 84443; 84703; 85025; 87502; 99285

== ENCOUNTER 2018-08-21 20:33 | Emergency (ER) | payer OTHER ==
[2018-08-21 20:45] VITALS: BP 121/81; TEMP 99; BMI 58.6
[2018-08-21] MEDS ORDERED: ATIVAN IM STA (21:05)
--- NOTE | 2018-08-21 21:08 | ED.PDOC ---
General ED Provider: Dr. RYAN PA MD Chief Complaint: Psychiatric Complaint Stated Complaint: im upset over relationships Time Seen by Physician: 21:00 Mode of Arrival: Walk-In Information Source: Patient Exam Limitations: No limitations Primary Care Provider: CAROLA ROBLES Nursing and Triage Documentation Reviewed and Agree: Yes Does patient meet sepsis criteria?: No If yes, has appropriate treatment been initiated?: Yes System Inflammatory Response Syndrome: Not Applicable Sepsis Protocol: For patient's 13 years and over: Temp is 96.8 and below OR 101 and greater Pulse >90 BPM Resp >20/minute Acutely Altered Mental Status Are patient's symptoms suggestive of a new infection, such as: -Pneumonia -Skin, Soft Tissue -Endocarditis -UTI -Bone, Joint Infection -Implantable Device -Acute Abdominal Infection -Wound Infection -Meningitis -Blood Stream Catheter Infection -Unknown Review of Systems - Review Of Systems Constitutional: Reports: No symptoms Eyes: Reports: No symptoms Ears, Nose, Mouth, Throat: Reports: No symptoms Respiratory: Reports: No symptoms Cardiac: Reports: No symptoms GI: Reports: No symptoms : Reports: No symptoms Musculoskeletal: Reports: No symptoms Skin: Reports: No symptoms Neurological: Reports: No symptoms Endocrine: Reports: No symptoms Hematologic/Lymphatic: Reports: No symptoms All Other Systems: Reviewed and Negative Past Medical History - Past Medical History Previously Healthy: Yes Endocrine: Reports: None Cardiovascular: Reports: None Respiratory: Reports: Asthma Hematological: Reports: None Gastrointestinal: Reports: None Genitourinary: Reports: None Neuro/Psych: Reports: Anxiety, Depression Musculoskeletal: Reports: None Cancer: Reports: None Last Menstrual Period: 07/09/18 - says is irregular - Surgical History General Surgical History: Reports: Other (cystoscopy 2014 ) - Family History Family History: Reports: Diabetes, Other (Hyperlipidemia ) - Social History Smoking Status: Former smoker Hx Substance Use: No Alcohol Screening: None - Immunizations Tetanus Shot up to Date: No (unsure) Physical Exam - Physical Exam Appearance: Well-appearing, No pain distress, Well-nourished Ill-appearing: Mild Eyes: CHARLY, EOMI, Conjunctiva clear ENT: Ears normal, Nose normal, Oropharynx normal Respiratory: Airway patent, Breath sounds clear, Breath sounds equal, Respirations nonlabored Cardiovascular: RRR, Pulses normal, No rub, No murmur GI/: Soft, Nontender, No masses, Bowel sounds normal, No Organomegaly Musculoskeletal: Normal strength, ROM intact, No edema, No calf tenderness Skin: Warm, Dry, Normal color Neurological: Sensation intact, Motor intact, Reflexes intact, Cranial nerves intact, Alert, Oriented Psychiatric: Affect appropriate, Mood appropriate, Anxious Critical Care Note - Critical Care Note Total Time (mins): 0 Course - Course Orders, Labs, Meds: Orders Category Date Time Status Lorazepam [Ativan] MEDS 08/21/18 21:05 Discontinued 2 mg IM ONCE STA Medications Discontinued Medications Generic Name Dose Route Start Last Admin Trade Name Freq PRN Reason Stop Dose Admin Lorazepam 2 mg 08/21/18 21:05 08/21/18 21:11 Ativan IM 08/21/18 21:06 2 mg ONCE STA Administration Vital Signs: Temp Pulse Resp BP Pulse Ox 08/21/18 20:35 99.0 F 98 H 20 121/81 96 Departure - Departure Time of Disposition: 23:00 Disposition: HOME SELF-CARE Discharge Problem: Anxious mood as adjustment reaction Instructions: Generalized Anxiety Disorder (ED) Condition: Good Pt referred to PMD for follow-up: Yes IPMP verified?: No Allergies/Adverse Reactions: Allergies Sulfa (Sulfonamide Antibiotics) Allergy (Mild, Verified 08/21/18 20:45) Itching/RASH methylphenidate [From Ritalin] Adverse Reaction (Verified 08/21/18 20:45) ELEVATES BP perphenazine [From Trilafon] Adverse Reaction (Verified 08/21/18 20:45) NUMBNESS TO ARMS quetiapine [From Seroquel] Adverse Reaction (Verified 08/21/18 20:45) Rash risperidone Adverse Reaction (Verified 08/21/18 20:45) "GETS PARANOID" Home Medications: Ambulatory Orders Albuterol Sulfate [Proair Hfa] 2 puff IH Q6H PRN 07/09/16 Ibuprofen [Motrin] 600 mg PO Q6H PRN #30 tablet 01/31/17 Metformin HCl 500 mg PO BID tab-cap 02/18/17 [place] Carbonate 600 mg PO BID 12/28/17 Bupropion HCl [Wellbutrin Xl] 300 mg PO DAILY 04/27/18 Olanzapine [Zyprexa] 15 mg PO DAILY 04/27/18 Diazepam [Valium] 5 mg PO DAILY 07/20/18 Paroxetine HCl [Paxil] 40 mg PO DAILY 07/20/18 Terazosin HCl 2 mg PO DAILY 07/20/18 Control Pill 1 tab PO DAILY 07/23/18 Losartan Potassium [Cozaar] 25 mg PO DAILY 07/23/18 Transfer Form Completed: No Disposition Discussed With: Patient, Family
== END 2018-08-21 22:57 | disposition home or self-care (01) ==
LOC: ED 20:33
DX: F41.1 Generalized anxiety disorder (principal); F43.20 Adjustment disorder, unspecified
CPT/HCPCS: 96372; 99282